=== PATIENT | male | born 1945 | race Caucasian/White ===

== ENCOUNTER → 2023-05-27 11:02 | Outpatient (BNVA) | payer OTHER, SELFPAY | PROVIDERS: Referring Provider Emergency Medicine Emergency Medical Services; Visit Provider Physician Assistant | DX: M17.0 Bilateral primary osteoarthritis of knee | CPT/HCPCS: 73560; 73565; 99203 ==

== ENCOUNTER 2023-05-27 14:37 | Outpatient (CLI) | payer OTHER, SELFPAY | END 2023-05-27 14:38 | disposition home or self-care (01) | LOC: SPT 14:38 | PROVIDERS: Visit Provider Physician Assistant | DX: Z46.89 Encounter for fitting and adjustment of other specified devices (principal); M17.11 Unilateral primary osteoarthritis, right knee; M17.12 Unilateral primary osteoarthritis, left knee | CPT/HCPCS: 97760; L1851 ==

== ENCOUNTER → 2023-08-31 10:43 | Outpatient (BNVA) | payer OTHER, SELFPAY | PROVIDERS: PCP Nurse Practitioner Family; Visit Provider Student in an Organized Health Care Education/Training Program | DX: M17.0 Bilateral primary osteoarthritis of knee | CPT/HCPCS: 99214 ==

== ENCOUNTER 2023-10-12 10:31 | Outpatient (CLI) | payer OTHER, SELFPAY ==
[2023-10-12 11:04] LABS: Charge for UA Resulting for Rev
[2023-10-12 11:09] LABS: Basophils # 0.1 10^3/uL (0.0-0.1); Basophils % 0.8 %; Eosinophils # 1.3 10^3/uL (0.0-0.8); Eosinophils % 16.1 %; Hematocrit 43.5 % (37-53); Lymphocytes # 2.7 10^3/uL (0.8-4.8); Lymphocytes % 32.5 %; Mean Corpuscular HGB Conc 32.2 g/dL (30-55); Mean Corpuscular Hemoglobin 31.5 pg (27-33); Mean Platelet Volume 9.3 fL (7.4-10.4); Monocytes # 1.1 10^3/uL (0.2-0.9); Monocytes % 12.7 %; Neutrophils # 3.14 10^3/uL (1.8-7.7); Neutrophils % 37.7 %; Nucleated Red Blood Cells % 0 %; Platelet Count 230 10^3/cmm (157-399); Red Blood Count 4.44 10^6/uL (3.85-5.65); Red Cell Distribution Width 12.5 % (12.1-15.1); White Blood Count 8.34 10^3/uL (3.29-11.43)
[2023-10-12 11:32] LABS: Alanine Aminotransferase 10 U/L (0-41); Albumin Level 4.1 g/dL (3.5-5.2); Alkaline Phosphatase 63 U/L (40-130); Anion Gap 16.3 (5-19); Aspartate Amino Transferase 16 U/L (0-40); Blood Urea Nitrogen 12 mg/dL (8-23); Carbon Dioxide 24 mmol/L (22-29); Chloride 101 mmol/L (98-107); Globulin 2.9 g/dL (1.3-4.6); Glucose 96 mg/dL (65-115); Osmolality Calculated 284 mOsm/kg (285-295); Potassium 4.3 mmol/L (3.5-5.1); Sodium 137 mmol/L (136-145); Total Bilirubin 0.5 mg/dL (0.15-1.2)
[2023-10-12 11:33] LABS: Bilirubin Urine Neg (Negative); Blood Urine Neg (Negative); Glucose Urine UA Norm (Normal); Ketones Urine Negative (Negative); Leukocyte Esterase Urine Negative (Negative); Nitrate Urine Negative (Negative); Protein Urine Neg (Negative); Specific Gravity, Urine 1.015 (1.005-1.030); Urine Appearance Clear (CLEAR); Urine Color Yellow (Yellow); Urobilinogen Urine Norm (Negative); pH Urine 8 (5-7)
== END 2023-10-12 10:32 | disposition home or self-care (01) ==
LOC: LAB 10:32
PROVIDERS: PCP Nurse Practitioner Family; Visit Provider Student in an Organized Health Care Education/Training Program
DX: Z01.818 Encounter for other preprocedural examination (principal)
CPT/HCPCS: 36415; 80053; 81003; 81015; 85025

== ENCOUNTER 2023-10-18 10:18 | Outpatient (CLI) | payer OTHER, SELFPAY ==
--- NOTE | 2023-10-18 10:30 | CT_ITS ---
WS: [id number] CT LEFT knee, noncontrast HISTORY: LEFT TOTAL KNEE ARTHROPLASTY WITH BERNIE TECHNIQUE: Protocol for BERNIE total knee replacement has been obtained. This includes axial imaging th rough the LEFT hip, LEFT knee and LEFT ankle. DLP: 865.60 mGy.cm COMPARISON: Radiograph 05/27/2023 Pelvis: Visualized pelvis demonstrates osteopenia. Partial fusion of the SI joints. SI joints are inc ompletely included. No destructive bone lesions. Patent bilateral inguinal canals containing fat. Mil d distal diverticular disease. LEFT knee: Advanced atherosclerosis. Osteophytic ridging with narrowing of the joint spaces. Partial lateral subluxation of the patella. There is a small suprapatellar joint effusion. Mild muscle atroph y. Large Paez's cyst. LEFT ankle: Negative. CT/CT knee [facility] [id number] IMPRESSION: CT imaging provided for BERNIE robotic total knee replacement.
== END 2023-10-18 10:19 | disposition home or self-care (01) ==
LOC: RAD 10:19
PROVIDERS: PCP Nurse Practitioner Family; Visit Provider Student in an Organized Health Care Education/Training Program
DX: Z01.818 Encounter for other preprocedural examination (principal); M17.12 Unilateral primary osteoarthritis, left knee; M85.80 Other specified disorders of bone density and structure, unspecified site; I70.90 Unspecified atherosclerosis; M25.762 Osteophyte, left knee; M71.22 Synovial cyst of popliteal space [Baker], left knee
CPT/HCPCS: 73700; 93005

== ENCOUNTER 2023-11-01 11:55 | Observation (INO) | payer OTHER, MEDICARE, SELFPAY ==
[2023-11-01] VITALS (15 sets, daily range): BP systolic 137–195; BP diastolic 67–89; PULSE 48–102; RESP 15–20; TEMP 36.1–36.8; O2SAT 91–100; BMI 29.6; BMI 29.7
--- NOTE | 2023-11-01 07:32 | W.PM.OPSFHP ---
Same Day Surgery H&P Indication for Procedure/HPI DATE OF PROCEDURE: November 01, 2023 CHIEF COMPLAINT/INDICATIONFOR SURGICAL PROCEDURE: Left knee degenerative joint disease PREOP DIAGNOSIS: Left knee degenerative joint disease PLANNED PROCEDURE: Operation Date: 11/01/23 09:35 Proposed Procedures p Adam Robot Total Knee Arthroplasty(Left) - Sonido Aiken DO Medications/Allergies* Home Medications Medication Instructions Recorded Confirmed Type aspirin 325 mg tablet 325 mg PO DAILY PRN Pain 05/27/23 10/29/23 History Allergies/Adverse Reactions Allergy/AdvReac Type Severity Reaction Status Date / Time No Known Allergies Allergy Verified 10/29/23 08:58 Pertinent History/Comorbid Conditions* Social History Smoking and tobacco/nicotine status: never used tobacco/nicotine Alcohol intake: current Alcohol intake frequency: few times a week Pertinent Exam Findings alert, oriented x 3, operative site marked and procedure specific exam findings Please refer to detailed orthopedic examination on 08/31/2023 listed below: left Knee Exam: ROM 5 to 110 degrees Patellar crepitus with ROM Medial joint line tenderness to palpation Lateral joint line tenderness to palpation Mild joint effusion Negative Grecia's, but pain noted Negative Deisy's 15 degrees of Varus deformity Stable Varus and Valgus stress Gross motor sensory intact Recommendations Surgery/Procedure today Other Plans: Patient is clear the preoperative clearance process is here today elects proceed with left total knee arthroplasty?Adam robotic assisted. He understands the ins and outs of procedure the risk benefits complication alternatives of surgery as well as the postoperative course. Understanding risk of surgery elects proceed with surgical intervention. All questions have been answered at this time. Elects proceed with surgery today. Coding Level of Care Code Acute Code for Jabari Mahan
[2023-11-01] MEDS: ketorolac 30 mg/mL INJ IVP (08:05)
[2023-11-01] MEDS: lactated ringers 500 ML IV (08:05)
[2023-11-01 08:17] LABS: Basophils % 0.6 %; Eosinophils # 0.9 10^3/uL (0.0-0.8); Eosinophils % 14.5 %; Hematocrit 43.3 % (37-53); Lymphocytes # 1.7 10^3/uL (0.8-4.8); Lymphocytes % 27.4 %; Mean Corpuscular HGB Conc 33.3 g/dL (30-55); Mean Corpuscular Hemoglobin 31.2 pg (27-33); Mean Corpuscular Volume 93.7 fl (82-101); Mean Platelet Volume 10.1 fL (7.4-10.4); Monocytes # 0.7 10^3/uL (0.2-0.9); Monocytes % 11.5 %; Neutrophils # 2.86 10^3/uL (1.8-7.7); Neutrophils % 45.7 %; Nucleated Red Blood Cells % 0 %; Platelet Count 192 10^3/cmm (157-399); Red Blood Count 4.62 10^6/uL (3.85-5.65); Red Cell Distribution Width 12.3 % (12.1-15.1); White Blood Count 6.27 10^3/uL (3.29-11.43)
--- NOTE | 2023-11-01 08:19 | P.ANESASSM_ITS ---
Pre-Anesthetic Assessment Height/Weight: Height 1.73 m Weight 88.451 kg Temp Pulse Resp BP Pulse Ox O2 Del Method 97.4 F L 56 L 16 195/86 98 Room Air 11/01/23 07:25 11/01/23 07:25 11/01/23 07:25 11/01/23 07:25 11/01/23 07:25 11/01/23 07:55 Preop Diagnosis: Left knee degenerative joint disease Operation Date: 11/01/23 09:35 Proposed Procedures p Adam Robot Total Knee Arthroplasty(Left) - Sonido Aiken DO Familial anesthetic complications: None Was Beta Amy taken within 24 hours: N/A Was Clonidine taken within 24 hours: N/A Last intake: Intake Last Liquid Date 10/31/23 Last Liquid Time 23:00 Last Solid Date 10/31/23 Last Solid Time 17:00 Social No alcohol and No tobacco Exam alert, oriented x 3, clear to auscultation bilaterally and regular rate & rhythm Airway Mallampati: Class II Dentition: full Musc/skel Osteoarthritis/DJD Anesthetic Plan ASA status: 1 Anesthesia: Regional (specify below) Risk of > 500 ml blood loss (7ml/kg in children): No Medications/Allergies Home Medications Medication Instructions Recorded Confirmed Last Taken Type aspirin 325 mg tablet 325 mg PO DAILY PRN Pain 05/27/23 10/29/23 10/19/23 History 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 #1 ea 05/27/23 08/31/23 Unknown Rx Allergies Allergy/AdvReac Type Severity Reaction Status Date / Time No Known Allergies Allergy Verified 10/29/23 08:58 [facility] Anesthesia Social History Smoking and tobacco/nicotine status: never used tobacco/nicotine Alcohol intake: current Alcohol intake frequency: few times a week Data Anesthesia 11/01/23 07:55 11/01/23 07:55 Short CBC 11/01/23 Range/Units 07:55 WBC 6.27 (3.29-11.43) 10^3/uL Hgb 14.40 (11.27-16.99) g/dL Hct 43.3 (37-53) % MCV 93.7 (82-101) fl Plt Count 192 (157-399) 10^3/cmm Neut % (Auto) 45.7 % Neut # (Auto) 2.86 (1.8-7.7) 10^3/uL Cardiac Studies: 2 No Data to Display
[2023-11-01 08:35] LABS: Blood Urea Nitrogen 10 mg/dL (8-23); Calcium 9.1 mg/dL (8.5-10.5); Carbon Dioxide 27 mmol/L (22-29); Chloride 102 mmol/L (98-107); Creatinine Clr Calc Pharmacy 82.2581; Glucose 106 mg/dL (65-115); Osmolality Calculated 287 mOsm/kg (285-295); Sodium 139 mmol/L (136-145)
[2023-11-01] MEDS: sodium chloride 0.9% 1,000 ML 30 ML IV (08:45)
--- NOTE | 2023-11-01 08:50 | ANES.PROC ---
Anesthesia Procedures Procedure/Date: 11/01/23 Adductor canal block Procedure Narrative: Ultrasound used to locate adductor canal. Nerve Block ^: Nerve Block 1: Main Anesthesia: spinal anesthesia block Time Out Performed: Yes Consent: requested by attending/covering physician, from patient, risks and benefits reviewed and patient agrees to proceed Nerve block location: adductor canal Anesthesia monitors applied: pulse oximetry, EKG, BP cuff and oxygen Nerve block position: semi sitting Anesthetic Used: ropivicaine 0.5% Amount of anesthesia used (mL): 30 Ultrasound used to: recognize landmarks Nerve Stimulator Used?: No Interscalene/Femoral BLK: 4 stimuplex 21 g needle used for position and inplane approach, visualize local anesthetic spread and no vascular puncture identified Injection: neg aspiration of heme Patient Tolerated Procedure: well and no complications Complications: none
[2023-11-01] MEDS: ceFAZolin 2,000 MG in sodium chloride 0.9% (plus) 50 ML 100 MG IV ×2 (09:41→16:21)
[2023-11-01] MEDS: tranexamic acid 1,000 mg/10mL SDV 1000 MG IV (10:15)
[2023-11-01] MEDS: ROPivacaine 0.2% Premix 100 mL 200 MG INTRA-ARTI (10:26)
[2023-11-01] MEDS: EPINEPHrine 1 mg/mL INJ XX (10:26)
[2023-11-01] MEDS: ketorolac 30 mg/mL INJ XX (10:26)
[2023-11-01] MEDS: tranexamic acid 1,000 mg/10mL SDV 1000 MG XX (10:26)
--- NOTE | 2023-11-01 11:34 | P.OP_ITS ---
Operative Report Date of procedure: November 01, 2023 Surgeon: Sonido Aiken DO Urgent Care Technician: Jacques Aiken PA-C: PA was necessary for assistance in this case with leg positioning retraction and protection of neurovascular structures as well as assistance in implantation wound closure and dressing application. Procedure: Preoperative diagnosis: Left knee degenerative joint disease Post-op diagnosis: Same Procedure done: Left total knee arthroplasty, cemented?robotic assisted Adam Implants: Alabaster triathlon size 6 femur CR cemented?left Alabaster triathlon size? 6 tibia universal baseplate cemented Alabaster triathlon symmetric patella size 33 mm George triathlon polyethylene 12mm Surgeon: Sonido Aiken DO Estimated blood?loss: 25 mL Tourniquet 59 minutes IV fluids: 1300 mL Urine output: 100 mL Complications: None Condition: stable Disposition: floor Brief History: Patient is a 77-year-old male with with chronic?left knee degenerative joint disease.? Patient has been worked up in the outpatient setting in the orthopedic office at this point time through shared decision making given? [id number] arthritis as well as failed conservative treatment, and pt would?like to proceed with a?left total knee arthroplasty.? Through shared decision making elected to proceed with surgical intervention for?left total knee arthroplasty.? We talked about continued conservative treatment and surgical intervention as far as the risk benefits complications alternatives surgical and nonsurgical treatment options.? At this point time understanding patient risks with surgery he agrees to proceed with surgical intervention.? Once again? risk with surgery include but are not?limited to make it better make it worse blood clot, heart attack, stroke, on the table, infection, injury to nerves or vessels, persistent pain, arthrofibrosis, implant failure.? Understanding these risks patient agrees to proceed with surgical intervention consent was obtained in the office.? All questions answered. Procedure: Patient was seen and evaluated in the preoperative holding area.? Consent was reviewed and signed with patient with plan for?left total knee arthroplasty.? All questions answered.? Correct extremity marked.? Patient seen and evaluated by the anesthesia department and once cleared for surgery was taken back to the operative suite.? Patient was placed into a supine position on the OR table.? All bony prominences were well-padded.? Patient was appropriately secured to the bed.? Patient underwent anesthesia per the anesthesia department.? Patient received spinal anesthesia and? Abreu catheter was placed.? A nonsterile tourniquet was applied to the?left thigh.? At this point in time a final timeout performed.? Patient received appropriate preoperative antibiotics and TXA. Next the?left?lower extremity was then prepped and draped in standard orthopedic fashion. Esmarch tourniquet was used exsanguinate the?left?lower extremity.? Tourniquet was insufflated to 250 mmHg. A standard anterior incision was made over midline of the knee.? Sharp scalpel excision through skin and subcutaneous tissue full-thickness skin flaps were made.? Fascia was elevated off of the extensor retinaculum was stable with medial parapatellar arthrotomy was then made.? The performed standard sequential releases..? Immediately on entry into the joint patient was found to have severe eburnated bone and tricompartmental arthritic changes noted.? With significant osteophyte formation.? Next the the patella was then stuffed and the knee was then flexed.?? Liyah was placed superiorly around the anterior aspect of the femur this was freed of synovium and I subsequently then placed by 2 femur pins to establish my femur arrays for the Adam robot.? These were then placed bicortically and? femur array was then appropriately secured with appropriate visualization.? Next attention was turned towards the tibial rays.? These were then drilled sequ entially bicortically in parallel fashion and intraincisional.? I then placed my guide as well as my tibial array on in place.? This was appropriately secured and had excellent visualization with the Adam robot.? Next the tibial checkpoint as well as femur checkpoint were then placed.? At this point time I then subsequently established my head center as well as my medial?lateral malleoli as well as my checkpoints.? Next utilizing standard Adam technology I then mapped out the appropriate points and confirmation points around the femur as well as the tibia in standard fashion.? Once this was then done I then removed all osteophytes in preparation for dynamic testing.? All osteophytes were removed as well as I removed the ACL and the PCL was excised due to its significant tearing and degeneration noted.? At this point time the knee was brought into full extension and we performed our standard evaluation of our gap balancing stressing his?ligaments and extension as well as flexion appro priate adjustments were made to have appropriate gap balancing in both flexion and extension.? This plan for final counts.? We get a preoperative plan evaluating our implants which was a size 6 femur and a size 6 tibia.? Next we brought in the Adam robot and sequentially made our femur cuts.? All excess bony cuts were then removed.? Finally we made our tibial cut.? Once this was done a standard PCL retractor was then placed into this position I excised the medial and?lateral meniscus.? The tibial cut was then subsequently removed all excess bony debris was removed.? I then utilized a?lamina newscast director and remove the posterior osteophytes.? At this point time sized the tibia and confirmed this was a size 6.? I utilized our blunt probe to establish rotation of tibial implant.? Once this was done I then placed my tibia size 6 trial in appropriate position and then subsequently placed tibial pins to hold this into place placed a size 12 mm poly as well as a size 6 femur which was appropriately impacted in place knee was then subsequently brought into extension. Trials were then assessed,? this was stable with varus valgus stress in extension as well as had symmetrical translation when brought into flexion demonstrating symmetrical gaps. I had excellent balance gaps in flexion and extension with varus and valgus stresses.? At this point I was satisfied with these implants these were then verified and opened on the back table size 6 tibia, size 6 femur,? size 12 mm polythickness.? We did confirm appropriate gap balancing and stresses as well as alignment utilizing? Adam and were satisfied with this plan.? ?At this point time with my trials in place I then towel clip the patella everted this made appropriate measurements subsequently utilizing freehand technique performed by patellar resurfacing this was confirmed to be appropriate resection and subsequently sized to be a 33 mm symmetric.? My drill peg guides were then clamped and appropriate position and appropriate position in the patella for appropriate tracking and parallel with the joint.? Pegs were drilled trial implant was placed and the knee was then subsequently ranged and found to have excellent patellar tracking.? Femur pegs were then drilled.? All checkpoints as well as guidepins and arrays were removed and appropriate counts. made. Satisfied with our tibial placement rotation I then utilized the keel punch and prepped the tibia.? At this point time all of our trial implants were removed.?The wound bed? was thoroughly irrigated and dried and prepped for cementation.? Cement was mixed on the back table.? Once cement was ready this was then covered onto the tibia and the tibial baseplate was then impacted and all excess cement was removed.? Next the polyethylene was then impacted into place on the tibial baseplate.? Next cement was placed onto the femur as well as under the femur implants and impacted in to place and all excess cement was extruded and removed.? Knee was taken into full extension? to clear all excess cement was removed.? Warm saline was placed over the joint.? I then towel clip patella and dried for cementation. cemented the patella into place.? This was all clamped and the cement was allowed to cure.? Thorough irrigation performed with pulse?lavage.? I then placed my periarticular injection while the cement was curing.? Once cured the knee was taken through range of motion and had excellent stability and gaps were balanced in flexion and extension.? Tourniquet was then deflated. hemostasis satisfactory with electrocautery.? Next I then subsequently closed the capsule with Ethibond suture as well as a running strata fix suture.? Knee was then taken through range of motion 20 times.? Next the skin was then closed in?layered fashion of running stratifix sutures of deep and subcutenous tissue and skin.? ?closed in flexion and ajay for patient scan due to his age skin frailty as well as he does have some psoriasis patches around where the adhesive dressing would be I feel this would irritates as a result we did ajay for the skin.? Incision was covered with puja incisional VAC dressing, with ABDs soft roll and Bay wrap.? Patient was then awakened from anesthesia and taken to PACU in stable condition. Disposition: Patient taken to PACU in stable condition will be admitted to the floor for pain control PT/OT weight-bear as tolerated?left?lower extremity dressing changes as needed, DVT prophylaxis. Pain control. Patient will receive appropriate postoperative antibiotics. patient will be seen today by the internal medicine team for medical management.? Patient will follow up with the office in 2 weeks.? Patient understands agrees with current plan.? All questions answered.
--- NOTE | 2023-11-01 11:51 | P.BOP_ITS ---
Date of Procedure: November 01, 2023] Surgeon: [Dr. Aiken DO] Porter Marina(s): [Jacques Aiken PA-C] Procedure(s) performed: [Left knee total arthroplasty with Adam robotic assist] Findings of the procedure(s): [Left knee degenerative joint disease] Estimated blood loss: [25 mL] Specimen(s) removed: [N/A] Post-operative diagnosis: [Left knee degenerative joint disease]
--- NOTE | 2023-11-01 11:54 | P.PCN_ITS ---
PACU note Narrative: Patient is a 77-year-old male that just underwent a left knee total arthroplasty. Pt transferred to PACU in stable condition. Dressing is dry. pt is awake and alert. Compartments are soft and compressible. Pt can wiggle toes. Unable to assess sensation to lower leg and any further motor function due to residual block. Distal pulses are palpable toes are warm and well- perfused. Cap refill is normal and under 2 seconds. Pain is controlled. Exam: awake Disposition: admitted
--- NOTE | 2023-11-01 11:55 | XR_ITS ---
WS: [id number] XR knee LT 1-2V [id number] REASON FOR EXAM: Left knee TKA post op FINDINGS: Total left knee arthroplasty. Components of the prosthesis are intact and in proper position and alignment. No focal bony abnormality. XR/XR knee LT -2V [id number] IMPRESSION: Total left knee arthroplasty without abnormality.
--- NOTE | 2023-11-01 12:10 | ANE.PACU2 ---
Inpatient post-anesthesia follow up: Airway intact: Yes Vital signs: Temperature 98.2 F Pulse Rate 58 Respiratory Rate 16 Blood Pressure 137/89 Pulse Oximetry 99 Oxygen Delivery Me thod Room Air Oxygen Flow Rate Fraction of Inspir ed Oxygen Hydration adequate: Yes Nausea and vomiting: No Pain level: 1 Mental status: Baseline
[2023-11-01] MEDS: cetylpyridinium Lozenge 1 EACH MUCOUS MEM (13:23)
[2023-11-01] MEDS: calcium carb-vit d 600mg/400unit 1 Tablet 1 EACH PO ×2 (13:23→17:40)
[2023-11-01] MEDS: iron polysaccharide complex 150 mg Capsule PO ×2 (13:23→17:40)
[2023-11-01] MEDS: multivitamin therapeutic Tablet 1 TAB PO (13:23)
[2023-11-01] MEDS: lactated ringers 1,000 ML 100 ML IV (13:24)
[2023-11-01] MEDS: chlorhexidine gluconate 0.12% Btl 473 mL 30 ML MUCOUS MEM ×3 (13:24→20:52)
[2023-11-01] MEDS: tranexamic acid 1,000 MG/100 ML PREMIX 600 MG IV (16:12)
[2023-11-02] VITALS: BP 151/73; PULSE 74; RESP 16; TEMP 36.7; O2SAT 95
[2023-11-02] MEDS: ceFAZolin 2,000 MG in sodium chloride 0.9% (plus) 50 ML 100 MG IV ×2 (00:47→09:30)
[2023-11-02 04:33] LABS: Basophils % 0.2 %; Eosinophils # 0.1 10^3/uL (0.0-0.8); Eosinophils % 0.6 %; Hematocrit 33.9 % (37-53); Lymphocytes # 1.5 10^3/uL (0.8-4.8); Mean Corpuscular HGB Conc 33.3 g/dL (30-55); Mean Corpuscular Hemoglobin 31.3 pg (27-33); Mean Corpuscular Volume 93.9 fl (82-101); Mean Platelet Volume 10.1 fL (7.4-10.4); Monocytes # 1.6 10^3/uL (0.2-0.9); Monocytes % 14.6 %; Neutrophils # 7.56 10^3/uL (1.8-7.7); Neutrophils % 70.1 %; Nucleated Red Blood Cells % 0 %; Platelet Count 180 10^3/cmm (157-399); Red Blood Count 3.61 10^6/uL (3.85-5.65); Red Cell Distribution Width 12.4 % (12.1-15.1); White Blood Count 10.77 10^3/uL (3.29-11.43)
[2023-11-02 04:51] LABS: Anion Gap 11.8 (5-19); Blood Urea Nitrogen 9 mg/dL (8-23); Carbon Dioxide 25 mmol/L (22-29); Chloride 104 mmol/L (98-107); Creatinine Clr Calc Pharmacy 82.3752; Glucose 100 mg/dL (65-115); Osmolality Calculated 283 mOsm/kg (285-295); Potassium 3.8 mmol/L (3.5-5.1); Sodium 137 mmol/L (136-145)
[2023-11-02] MEDS: ketorolac 30 mg/mL INJ 15 MG IVP (06:27)
[2023-11-02] MEDS: TRAMadol 50 mg Tablet PO (06:36)
[2023-11-02 07:44] VITALS: BP 175/75; PULSE 62; RESP 18; TEMP 36.6; O2SAT 95
--- NOTE | 2023-11-02 08:00 | P.DS_ITS ---
Discharge Providers Date of Admission: 11/01/23 11:55 Date of Discharge: November 02, 2023 Attending Provider at Admission: Sonido Aiken DO Attending Provider at Discharge: Sonido Aiken DO Consults: Dr. Webster?hospitalist Primary Care Provider: Chioma Machado APRN Diagnoses at Discharge Discharge Diagnosis (1) Left knee DJD: Status: Inactive (2) Osteoarthritis of right knee: Status: Inactive (3) Loose left total knee arthroplasty: Status: Inactive Reason for Visit Reason for Visit: Brief History: Status post left TKA Hospital Course Hospital Course Patient presented to the preoperative holding area with plan for left total knee arthroplasty after patient has been worked up in the outpatient setting for failed conservative treatment of left knee degenerative joint disease. Once cleared by anesthesia for surgery patient subsequently was taken back to the operative suite underwent anesthesia per anesthesia department and then subsequently underwent a left total knee arthroplasty. Procedure was performed without any complications patient was taken to PACU in stable condition patient recovered well in PACU and then was admitted to the floor postoperatively internal medicine was consulted and on board for medical management and assistance with care. Patient received appropriate PT/OT, postoperative antibiotics, postoperative TXA, pain control, postoperative DVT prophylaxis. Elevation and ice. Patient encouraged for knee range of motion allowed weightbearing as tolerated to the operative lower extremity. Dressing was changed as needed, labs were monitored daily. Patient recovered well postoperatively and worked well and progressed well with therapy. It was determined on postoperative day 1 the patient was stable for discharge from an orthopedic standpoint and medicine. Patient was comfortable with discharge and plan was discharged home. Patient received appropriate discharge instructions as well as pain medication and DVT prophylaxis postoperatively. Given appropriate instructions for dressing management. Patient will follow-up with Dr. Aiken/orthopedics in the office in 2 weeks. All questions answered. Understand if there is any issues questions or concerns and contact the office. Physical Exam Narrative: Examination left lower extremity: Examination left lower extremity demonstrates patient's dressings on in place good seal normal postoperative swelling about the knee as well as diffuse tenderness palpation. Calf soft nontender compartment soft compressible. Distal pulses are palpable toes warm well-perfused with cap refill less than 2 seconds and a plantarflex and dorsiflex ankle as well as wiggle toes. Urinary Catheter Management: Abreu: Cath Placed During This Visit: yes, but has since been removed by the nurse Reason for Continuing Indwelling Catheter: Decision to DC Catheter Date Urinary Catheter Removed: 11/02/23 Time Urinary Catheter Discontinued: 06:18 Discharge Data Studies Completed and Pending Completed Studies During Hospitalization Category Date Time Status XR knee LT 1-2V 33441 Routine Exams 11/01/23 11:55 Completed Radiology Impressions Knee X-Ray 11/01/23 11:55 IMPRESSION: Total left knee arthroplasty without abnormality. Laboratory Results WBC 10.77 10^3/uL (3.29-11.43) 11/02/23 04:20 RBC 3.61 10^6/uL (3.85-5.65) L 11/02/23 04:20 Hgb 11.30 g/dL (11.27-16.99) 11/02/23 04:20 Hct 33.9 % (37-53) L 11/02/23 04:20 MCV 93.9 fl (82-101) 11/02/23 04:20 MCH 31.3 pg (27-33) 11/02/23 04:20 MCHC 33.3 g/dL (30-55) 11/02/23 04:20 RDW 12.4 % (12.1-15.1) 11/02/23 04:20 Plt Count 180 10^3/cmm (157-399) 11/02/23 04:20 MPV 10.1 fL (7.4-10.4) 11/02/23 04:20 Neut % (Auto) 70.1 % 11/02/23 04:20 Lymph % (Auto) 14.0 % 11/02/23 04:20 [place] % (Auto) 14.6 % 11/02/23 04:20 Eos % (Auto) 0.6 % 11/02/23 04:20 Baso % (Auto) 0.2 % 11/02/23 04:20 Neut # (Auto) 7.56 10^3/uL (1.8-7.7) 11/02/23 04:20 Lymph # (Auto) 1.5 10^3/uL (0.8-4.8) 11/02/23 04:20 [place] # (Auto) 1.6 10^3/uL (0.2-0.9) H 11/02/23 04:20 Eos # (Auto) 0.1 10^3/uL (0.0-0.8) 11/02/23 04:20 Baso # (Auto) 0.0 10^3/uL (0.0-0.1) 11/02/23 04:20 Nucleated RBC % (auto) 0 % 11/02/23 04:20 Nucleated RBCs # 0.0 /100WBC 11/02/23 04:20 Sodium 137 mmol/L (136-145) 11/02/23 04:20 Potassium 3.8 mmol/L (3.5-5.1) 11/02/23 04:20 Chloride 104 mmol/L (98-107) 11/02/23 04:20 Carbon Dioxide 25 mmol/L (22-29) 11/02/23 04:20 Anion Gap 11.8 (5-19) 11/02/23 04:20 BUN 9 mg/dL (8-23) 11/02/23 04:20 Creatinine 0.7 mg/dL (0.7-1.2) 11/02/23 04:20 GFR Calculation Not Reportable 11/02/23 04:20 Glucose 100 mg/dL (65-115) 11/02/23 04:20 Calculated Osmolality 283 mOsm/kg (285-295) L 11/02/23 04:20 Calcium 9.0 mg/dL (8.5-10.5) 11/02/23 04:20 Blood Type A Negative 11/01/23 07:55 Rho(D) Type Rh negative 11/01/23 07:55 Antibody Screen Negative 11/01/23 07:55 Vitals Last Vital Signs Temp 97.9 F 11/02/23 07:44 Pulse 63 11/02/23 10:04 Resp 18 11/02/23 10:04 BP 175/75 11/02/23 07:44 Pulse Ox 96 11/02/23 10:04 O2 Del Method Room Air 11/02/23 09:24 Discharge Plan Discharge Patient Disposition: Home Health Service Condition: Stable Prescriptions: New ondansetron 4 mg tablet,disintegrating 4 mg PO Q8H PRN (Reason: nausea and vomiting) 3 Days Qty: 9 0RF Eliquis 2.5 mg tablet 2.5 mg PO BID 14 Days Qty: 28 0RF oxycodone 5 mg tablet 5 mg PO Q6H PRN (Reason: pain postop) 7 Days Qty: 28 0RF Calcium 600 + D(3) 600 mg-10 mcg (400 unit) tablet 1 tab PO DAILY 30 Days Qty: 30 0RF lisinopril 10 mg tablet 10 mg PO DAILY Qty: 30 3RF Held aspirin 325 mg tablet 325 mg PO DAILY PRN (Reason: Pain) Hold Instructions: Resume on 11/16/23. No Action (DME) bilateral knee drum loader and unloader brace See Rx Instructions .Route .MEDSUPPLY Qty: 1 0RF Rx Instructions: As directed Discharge Orders: Discharge Order (Routine); Ordered 11/02/23 Ordered By: Sonido Aiken Other Ambulatory Orders: DME: Walker (Order) Location: None Selected Ordered By: Sonido Aiken Referrals: [facility] [Other] - 11/09/23 11:30 am (Chioma Machado APN) [facility] [Outside] Sonido Aiken DO [Physician] - 11/16/23 8:45 am Discharge Diet: Regular Discharge Activity: Limit activity as instructed and Use walker/crutches as instructed Patient Instructions: Oxycodone, Rapid Release (By mouth), Ondansetron (By mouth), Apixaban (By mouth), Acute Wound Care (DC), Opioid Safety, Post Anesthesia Care Activity Restrictions/Additional Instructions: Orthopedic discharge instructions Brian Dressing--Keep dressing on and dry. After 3 days you can remove some of the dressing and shower. disconnect battery pack when showering. Brian dressing will stay on until follow up appt in 2 weeks. The battery pack for the dressing will at 5-7 days. Battery pack can be removed and discarded once batteries . May leave the dressing on for 2 weeks Patient may weight-bear as tolerate to the operative extremity Utilize crutches as needed Encourage knee range of motion Ice and elevate as needed for pain and swelling Take pain medication as prescribed Take antinausea medication as needed Pain medication can cause constipation. take swse-rqq-xgjfldz stool softeners and or MiraLAX. Take prescribed Eliquis twice daily for the next 14 days for blood clot prevention May supplement for pain with ibuprofen [id number]-[id number]-[id number] as needed No baths or soaks Follow-up in the orthopedic office in 2 weeks Contact the office for any questions or concerns Discharge Attestations Time Spent in Discharge Care*: less than 30 min Quality Metrics Clinical Quality Measures [ No reported AMI, CVA or VTE this stay] Coding Level of Care Code Acute Code for Chg Fwd Diagnoses Left knee DJD M17.12 Osteoarthritis of right knee M17.11 Loose left total knee arthroplasty T84.033A
--- NOTE | 2023-11-02 08:03 | P.DS_ITS ---
Discharge Providers Date of Admission: 11/01/23 11:55 Date of Discharge: November 02, 2023 Attending Provider at Admission: Sonido Aiken DO Attending Provider at Discharge: Sonido Aiken DO Primary Care Provider: Chioma Machado APRN Physical Exam Urinary Catheter Management: Abreu: Cath Placed During This Visit: yes, but has since been removed by the nurse Reason for Continuing Indwelling Catheter: Decision to DC Catheter Date Urinary Catheter Removed: 11/02/23 Time Urinary Catheter Discontinued: 06:18 Discharge Data Studies Completed and Pending Completed Studies During Hospitalization Category Date Time Status XR knee LT 1-2V 02675 Routine Exams 11/01/23 11:55 Completed Pending at discharge Category Date Time Status Basic Metabolic Panel AM LABS Lab 11/03/23 04:00 Ordered Basic Metabolic Panel AM LABS Lab 11/04/23 04:00 Ordered Complete Blood Count w/Auto AM LABS Lab 11/03/23 04:00 Ordered Complete Blood Count w/Auto AM LABS Lab 11/04/23 04:00 Ordered Radiology Impressions Knee X-Ray 11/01/23 11:55 IMPRESSION: Total left knee arthroplasty without abnormality. Laboratory Results WBC 10.77 10^3/uL (3.29-11.43) 11/02/23 04:20 RBC 3.61 10^6/uL (3.85-5.65) L 11/02/23 04:20 Hgb 11.30 g/dL (11.27-16.99) 11/02/23 04:20 Hct 33.9 % (37-53) L 11/02/23 04:20 MCV 93.9 fl (82-101) 11/02/23 04:20 MCH 31.3 pg (27-33) 11/02/23 04:20 MCHC 33.3 g/dL (30-55) 11/02/23 04:20 RDW 12.4 % (12.1-15.1) 11/02/23 04:20 Plt Count 180 10^3/cmm (157-399) 11/02/23 04:20 MPV 10.1 fL (7.4-10.4) 11/02/23 04:20 Neut % (Auto) 70.1 % 11/02/23 04:20 Lymph % (Auto) 14.0 % 11/02/23 04:20 [place] % (Auto) 14.6 % 11/02/23 04:20 Eos % (Auto) 0.6 % 11/02/23 04:20 Baso % (Auto) 0.2 % 11/02/23 04:20 Neut # (Auto) 7.56 10^3/uL (1.8-7.7) 11/02/23 04:20 Lymph # (Auto) 1.5 10^3/uL (0.8-4.8) 11/02/23 04:20 [place] # (Auto) 1.6 10^3/uL (0.2-0.9) H 11/02/23 04:20 Eos # (Auto) 0.1 10^3/uL (0.0-0.8) 11/02/23 04:20 Baso # (Auto) 0.0 10^3/uL (0.0-0.1) 11/02/23 04:20 Nucleated RBC % (auto) 0 % 11/02/23 04:20 Nucleated RBCs # 0.0 /100WBC 11/02/23 04:20 Sodium 137 mmol/L (136-145) 11/02/23 04:20 Potassium 3.8 mmol/L (3.5-5.1) 11/02/23 04:20 Chloride 104 mmol/L (98-107) 11/02/23 04:20 Carbon Dioxide 25 mmol/L (22-29) 11/02/23 04:20 Anion Gap 11.8 (5-19) 11/02/23 04:20 BUN 9 mg/dL (8-23) 11/02/23 04:20 Creatinine 0.7 mg/dL (0.7-1.2) 11/02/23 04:20 GFR Calculation Not Reportable 11/02/23 04:20 Glucose 100 mg/dL (65-115) 11/02/23 04:20 Calculated Osmolality 283 mOsm/kg (285-295) L 11/02/23 04:20 Calcium 9.0 mg/dL (8.5-10.5) 11/02/23 04:20 Blood Type A Negative 11/01/23 07:55 Rho(D) Type Rh negative 11/01/23 07:55 Antibody Screen Negative 11/01/23 07:55 Vitals Last Vital Signs Temp 97.9 F 11/02/23 07:44 Pulse 62 11/02/23 07:44 Resp 18 11/02/23 07:44 BP 175/75 11/02/23 07:44 Pulse Ox 95 11/02/23 07:44 O2 Del Method Room Air 11/02/23 07:44 Discharge Plan Discharge Patient Disposition: Home Health Service Condition: Stable Prescriptions: New ondansetron 4 mg tablet,disintegrating 4 mg PO Q8H PRN (Reason: nausea and vomiting) 3 Days Qty: 9 0RF Eliquis 2.5 mg tablet 2.5 mg PO BID 14 Days Qty: 28 0RF oxycodone 5 mg tablet 5 mg PO Q6H PRN (Reason: pain postop) 7 Days Qty: 28 0RF Calcium 600 + D(3) 600 mg-10 mcg (400 unit) tablet 1 tab PO DAILY 30 Days Qty: 30 0RF lisinopril 10 mg tablet 10 mg PO DAILY Qty: 30 3RF Held aspirin 325 mg tablet 325 mg PO DAILY PRN (Reason: Pain) Hold Instructions: Resume on 11/16/23. No Action (DME) bilateral knee sql tech brace See Rx Instructions .Route .MEDSUPPLY Qty: 1 0RF Rx Instructions: As directed Discharge Orders: Discharge Order (Routine); Ordered 11/02/23 Ordered By: Sonido Aiken Other Ambulatory Orders: DME: Walker (Order) Location: None Selected Ordered By: Sonido Aiken Referrals: [facility] [Other] - 11/09/23 11:30 am (Chioma Machado APN) [facility] [Outside] Sonido Aiken DO [Physician] - 11/16/23 8:45 am Discharge Diet: Regular Discharge Activity: Limit activity as instructed and Use walker/crutches as instructed Patient Instructions: Oxycodone, Rapid Release (By mouth), Ondansetron (By mouth), Apixaban (By mouth), Acute Wound Care (DC), Opioid Safety, Post Anesthesia Care Activity Restrictions/Additional Instructions: Orthopedic discharge instructions Brian Dressing--Keep dressing on and dry. After 3 days you can remove some of the dressing and shower. disconnect battery pack when showering. Brian dressing will stay on until follow up appt in 2 weeks. The battery pack for the dressing will at 5-7 days. Battery pack can be removed and discarded once batteries . May leave the dressing on for 2 weeks Patient may weight-bear as tolerate to the operative extremity Utilize crutches as needed Encourage knee range of motion Ice and elevate as needed for pain and swelling Take pain medication as prescribed Take antinausea medication as needed Pain medication can cause constipation. take dpzb-pce-phmhmgn stool softeners and or MiraLAX. Take prescribed Eliquis twice daily for the next 14 days for blood clot prevention May supplement for pain with ibuprofen zncy-txx-hcldbjt as needed No baths or soaks Follow-up in the orthopedic office in 2 weeks Contact the office for any questions or concerns Discharge Attestations Time Spent in Discharge Care*: less than 30 min Quality Metrics Clinical Quality Measures [ No reported AMI, CVA or VTE this stay] Coding Level of Care Code Acute Code for Jabari Fwgraham
[2023-11-02] MEDS: calcium carb-vit d 600mg/400unit 1 Tablet 1 EACH PO (09:07)
[2023-11-02] MEDS: apixaban 5 mg Tablet 2.5 MG PO (09:08)
[2023-11-02] MEDS: iron polysaccharide complex 150 mg Capsule PO (09:08)
[2023-11-02] MEDS: multivitamin therapeutic Tablet 1 TAB PO (09:08)
--- NOTE | 2023-11-02 09:19 | PC.CHAP ---
Pastoral Care Encounter/Spiritual Assessment Type of Contact [] Declined server systems administrator visit [] Patient/Family/Request visit [] Outpatient visit [] Follow-up visit [] Physician referral [] Code/Alert [x] Routine visit [] Staff referral [] Actively dying [] Patient sleeping [x] Family support [] [] Out of room [] Palliative care [] [] Receiving care in room [] Pre-surgical visit [] Trauma [] Long length of stay [] ICU visit [] Other: Relational/Emotional Strength [x] Patient feels connected with others/family/visitors/staff [] Distress [] Loneliness/isolation [] Abandonment Spirituality of Patient [x] Person of Marleen [] Attends L[employer] of their Marleen [x] Believes in Prayer [] Reads Bible or Congregation materials [] There are Spiritual issues to be addressed Proctologist Interventions [x] Prayer [x] Active listening [] Non-anxious presence [x] Spiritual/emotional support [] Crisis/trauma care [] Spiritual counseling [] Bereavement support [] Provided bereavement packet [] Provided Bible/devotional materials [] Provided toy/stuffed animal, coloring book to patient or family member [] Provided Communion [] Anointing/[place] [] Salvation [x] Completed spiritual assessment [] Other: Impact on Illness or Injury [] Angry [] Fearful [] Anxious [] Often cries [] Exhaustion [] Unable to work [] Unable to attend anabaptist [] Unable to walk/stand [] Unable to read [] Unable to drive [] Unable to eat/drink [] Unable to sleep [] Unable to be with family [] Patient intubated [] Other: Summary Time spent with patient 5 min
[2023-11-02 09:24] VITALS: PULSE 63; RESP 18; O2SAT 96
--- NOTE | 2023-11-02 09:39 | P.CONIM_ITS ---
Providers/Reason For Consult 2 Consulting Physician/Specialty*: Hospitalist Reason for Consult*: Postoperative management Attending Physician: Sonido Aiken DO Primary Care Provider: Chioma Machado APRN History of Present Illness History of Present Illness Jesus Zaman is a 77 year old male status post left total knee arthroplasty, hospital service was consulted for postoperative management. Patient remained stable postoperatively, he did well with PT, pain was under control he was put on opioids along bowel regimen,No postoperative complications. Patient is going home with stable hemodynamics with DVT prophylaxis. He will see Dr. Aiken in the clinic Review of Systems 2 Const: Denies: fever(s) Eyes: Denies: change in vision ENMT: Denies: throat pain Card: Denies: chest pain Medications/Allergies Home Medications Medication Instructions Recorded Confirmed Last Taken Type aspirin 325 mg tablet 325 mg PO DAILY PRN Pain 05/27/23 10/29/23 10/19/23 History bilateral knee grain unloader machine brace #1 ea 05/27/23 11/02/23 Unknown Rx apixaban 2.5 mg tablet (Eliquis) 2.5 mg PO BID 2 weeks #28 tabs 11/01/23 Unknown Rx ondansetron 4 mg disintegrating 4 mg PO Q8H PRN nausea and 11/01/23 Unknown Rx tablet vomiting 3 days #9 tabs calcium carbonate 600 mg-vitamin 1 tab PO DAILY Bone health and 11/02/23 Unknown Rx D3 10 mcg (400 unit) tablet healing 30 days #30 tabs (Calcium 600 + D(3)) oxycodone 5 mg tablet 5 mg PO Q6H PRN pain postop 7 days 11/02/23 Unknown Rx #28 tabs Allergies Allergy/AdvReac Type Severity Reaction Status Date / Time No Known Allergies Allergy Verified 10/29/23 08:58 Current Medications Generic Name Dose Route Start Last Admin Trade Name Freq PRN Reason Stop Dose Admin Calcium Carbonate 1 each 11/01/23 12:25 11/01/23 13:23 Calcium Carb-Vit D 600mg/400unit 1 Tablet PO 1 each BID GUANACO Administration Chlorhexidine Gluconate 30 ml 11/01/23 12:25 11/01/23 16:16 Chlorhexidine Gluconate 0.12% Btl 473 Ml MUCOUS MEM 30 ml QID GUANACO Administration Docusate Sodium 100 mg 11/01/23 12:25 11/01/23 13:22 Docusate Sodium 100 Mg Capsule PO Not Given BID GUANACO Acetaminophen 1,000 mg in 100 mls @ 400 mls/hr 11/01/23 13:30 11/01/23 13:22 Acetaminophen IV 11/02/23 05:44 Not Given Q8H GUANACO Lactated Ringer's 1,000 mls @ 100 mls/hr 11/01/23 12:25 11/01/23 13:24 Lactated Ringers IV 100 mls/hr .Q10H GUANACO Administration Cefazolin Sodium 2,000 mg/ 50 mls @ 100 mls/hr 11/01/23 17:00 11/01/23 16:21 Sodium Chloride IV 11/02/23 09:29 100 mls/hr Q8H GUANACO Administration Protocol Multivitamins Therapeutic 1 tab 11/01/23 12:25 11/01/23 13:23 Multivitamin Therapeutic Tablet PO 1 tab DAILY GUANACO Administration Mupirocin 1 applic 11/01/23 12:25 11/01/23 14:20 Mupirocin Oint 22 Gm NASAL 11/06/23 12:24 Not Given BID GUANACO Protocol Polysaccharide Iron Complex 150 mg 11/01/23 12:25 11/01/23 13:23 Iron Polysaccharide Complex 150 Mg Capsule PO 150 mg BIDWM GUANACO Administration Senna/Docusate Sodium 2 tab 11/01/23 12:25 11/01/23 13:22 Sennosides-Docusate Tablet PO Not Given BID GUANACO PFSH Acute 2 PFSH: Social History Smoking and tobacco/nicotine status: never used tobacco/nicotine Alcohol intake: current Alcohol intake frequency: few times a week Vitals/I&O/Wt Last Vital Signs Temp 97.7 F 11/01/23 15:20 Pulse 48 L 11/01/23 15:20 Resp 16 11/01/23 15:20 BP 188/67 11/01/23 15:20 Pulse Ox 97 11/01/23 15:20 O2 Del Method Room Air 11/01/23 15:20 11/01/23 11/01/23 11/01/23 06:59 14:59 22:59 Intake Total 2100 / 2100 Output Total 125 / 125 Balance 1974 / 1974 Weight last 48 hrs Weight 88.451 kg Physical Exam 2 Narrative: Awake and alert GCS 15 Nonfocal neuroexam Working with PT S1, S2 Currently on room air Data 11/02/23 04:20 11/02/23 04:20 A&P Assessment and plan (1) Left knee DJD: (2) Osteoarthritis of right knee: (3) Loose left total knee arthroplasty: Plan Postop day 1 No postoperative complications Hemodynamically stable Being discharged with DVT prophylaxis opioids and bowel regimen Will follow-up with Dr. Aiken outpatient Hypertension could be related to recent postoperative pain, will add low-dose lisinopril Consult Attestations 2 Medical Necessity Statement: Getting discharged today Diagnoses Left knee DJD M17.12 Osteoarthritis of right knee M17.11 Loose left total knee arthroplasty T84.033A
[2023-11-02 10:04] VITALS: PULSE 63; RESP 18; O2SAT 96
== END 2023-11-02 10:55 | disposition home health service (06) ==
LOC: MEDSURG 11:55
PROVIDERS: Physician Assistant; Admitting Provider Student in an Organized Health Care Education/Training Program; PCP Nurse Practitioner Family; Visit Provider Student in an Organized Health Care Education/Training Program
PROC: 8E0Y0CZ Robotic Assisted Procedure of Lower Extremity, Open Approach (ICD-10-PCS; CPT 27447; principal; 2023-11-01 09:35)
DX: M17.12 Unilateral primary osteoarthritis, left knee (principal); Z79.82 Long term (current) use of aspirin; T84.033A Mechanical loosening of internal left knee prosthetic joint, initial encounter
CPT/HCPCS: 20985; 27447; 36415; 73560; 80048; 85025; 86850; 86900; 94664; 97110; 97116; 97161; 97165; C1776; G0378; J0171; J0690; J1100; J1885; J2250; J2704; J2795; J3010; J3490; J7030; J7120

== ENCOUNTER → 2023-11-16 08:39 | Outpatient (BNVA) | payer OTHER, MEDICARE, SELFPAY | PROVIDERS: PCP Nurse Practitioner Family; Visit Provider Physician Assistant | DX: Z96.652 Presence of left artificial knee joint (principal) | CPT/HCPCS: 73560; 73565 ==

== ENCOUNTER 2023-11-16 10:03 | Emergency (ER) | payer OTHER, MEDICARE, SELFPAY ==
--- NOTE | 2023-11-16 10:09 | USCV_ITS ---
Jesus Zaman Age: 78 Gender: M : 1945 Exam Date: 11/16/2023 10:52 Ordering Phys: Adriana Marks Technologist: [place] [facility] [place] Indication: post lt knee surg swelling and pain PROCEDURES: Venous duplex imaging was performed in only the left lower extremity. The following venous structures were evaluated: common femoral vein, profunda vein, proximal portion of the greater saphenous vein, superficial femoral vein, and the popliteal vein. In addition, the posterior tibial and peroneal trunk were evaluated. FINDINGS: Normal 2-D Doppler and augmentation and compressibility throughout the lower extremity venous structures. Additional imaging through the proximal calf veins also reveals no thrombus. Limited evaluation of the greater saphenous vein is patent with no thrombus. There is a large bakers cyst or hematoma in the lt popleteal fossa CONCLUSIONS No evidence of left lower extremity DVT. Popliteal cyst or hematoma measuring 6.5 x 2.6 x2.9cm with internal debris Amandeep Lezama MD (Electronically Signed) Final Date: 16 November 2023 11:30 S
[2023-11-16 10:23] VITALS: BP 174/78; PULSE 64; RESP 16; TEMP 36.8; O2SAT 97; BMI 29.3
--- NOTE | 2023-11-16 12:47 | ED_ITS ---
HPI - Extremity Problem General: Chief complaint: Extremity Problem,Nontraumatic Stated complaint: Left knee/leg pain and swelling Time Seen by Provider: 11/16/23 10:09 Source: patient and family Mode of arrival: ambulatory Limitations: no limitations History of Present Illness: Patient is a nice 78-year-old male who presents to the ED today at the request of the orthopedic clinic for DVT rule out. Patient underwent left knee arthroplasty by Dr. Aiken on 10/31. He states he followed up with orthopedic clinic today and was seen by Jacques Aiken PA-C. He states his sutures/ajay were removed on today's visit. There are some notable swelling to his popliteal space and calf thus prompting the recommendation to come to the emergency department for DVT rule out. Patient feels like his postop pain is doing well. He is ambulating well here. MD Complaint: extremity pain, extremity swelling, joint swelling and joint pain Onset (ago): day(s) Pain Consistency: constant Location: left and knee Radiation: none Relieving factors: nothing Exacerbating factors: nothing Associated symptoms: Reports no associated symptoms; Deny chest pain Context: recent surgery/procedure Related Data Home Medications Medication Instructions Recorded Confirmed aspirin 325 mg tablet 325 mg PO DAILY PRN Pain 05/27/23 11/16/23 ibuprofen 200 mg capsule 200 mg PO Q6H PRN 11/16/23 11/16/23 Previous Rx's Medication Instructions Recorded calcium carbonate 600 mg-vitamin 1 tab PO DAILY Bone health and 11/02/23 D3 10 mcg (400 unit) tablet healing 30 days #30 tabs (Calcium 600 + D(3)) lisinopril 10 mg tablet 10 mg PO DAILY #30 tabs 11/02/23 Allergies Allergy/AdvReac Type Severity Reaction Status Date / Time No Known Allergies Allergy Verified 11/16/23 08:47 Review of Systems Card: Denies: chest pain, palpitations, lightheadedness, syncope or pre- syncope Resp: Denies: dyspnea Musc: Reports: extremity pain, extremity swelling, joint pain and joint swelling; Denies: neck pain or back pain Neuro: Denies: numbness in extremities, weakness in extremities, sensory changes or difficulty walking PFS ED PFSH: Medical History Loose left total knee arthroplasty Osteoarthritis of right knee Left knee DJD Social History Smoking and tobacco/nicotine status: never used tobacco/nicotine Alcohol intake: current Alcohol intake frequency: few times a week Physical Exam Const: COMMON NORMALS: no acute distress, average body habitus, patient oriented x3, no limitations, healthy appearing, alert and well nourished Resp: COMMON NORMALS: normal respiratory effort and clear to auscultation bilaterally AUSCULTATION: clear to auscultation bilaterally Cardio: COMMON NORMALS: regular rate and regular rhythm RATE: regular rate RHYTHM: regular rhythm Extremity: COMMON NORMALS: full ROM and capillary refill normal GENERAL: Yes normal exam except as noted LEFT LOWER EXTREMITY: Yes knee joint OTHER: surgical knee incision is clean and well healing; normal post-op swelling/ecchymosis noted; TTP/swelling L popliteal space and into calf Neuro: COMMON NORMALS: patient oriented x3, moves all extremities, no focal motor deficits, no sensory deficits noted and gait normal SENSORIUM/ORIENTATION: Yes alert Course Vital Signs: Vital signs: Vital Signs Temperature 98.3 F 11/16/23 10:23 Pulse Rate 64 11/16/23 10:23 Respiratory Rate 16 11/16/23 10:23 Blood Pressure 174/78 11/16/23 10:23 Pulse Oximetry 97 11/16/23 10:23 Oxygen Delivery Me thod Room Air 11/16/23 10:23 MDM - Extremity (Nontraumatic) Medical Decision Making US negative for DVT. Space of concern was noted to be either a hematoma or a Paez's cyst. He states he will contact the orthopedic clinic to let them know results. They can follow-up with him as needed. Medical Records I reviewed the patient's medical records. All radiology interpretation(s) finalized by discharge Discharge Plan Discharge Patient Disposition: Home Clinical Impression: Hematoma of left knee region Condition: Stable Prescriptions: No Action aspirin 325 mg tablet 325 mg PO DAILY PRN (Reason: Pain) Hold Instructions: Resume on 11/16/23. ibuprofen 200 mg capsule 200 mg PO Q6H PRN Calcium 600 + D(3) 600 mg-10 mcg (400 unit) tablet 1 tab PO DAILY 30 Days Qty: 30 0RF lisinopril 10 mg tablet 10 mg PO DAILY Qty: 30 3RF Discharge Orders: Discharge ED (Routine); Ordered 11/16/23 Ordered By: Adriana Marks Referrals: Chioma Machado APRN [Primary Care Provider] - Activity Restrictions/Additional Instructions: As we discussed, your ultrasound today does not show any evidence of a blood clot. Ultrasound showed the area behind your knee is either secondary to a hematoma or Paez's cyst. As we discussed I like you to contact the orthopedic clinic to schedule further follow-up in regards to this. Coding Level of Care Code ED Neurology Professor for Jabari Mahan
[2023-11-16 13:11] VITALS: BP 182/78; PULSE 54; O2SAT 99
== END 2023-11-16 13:00 | disposition home or self-care (01) ==
PROVIDERS: Absent Provider Student in an Organized Health Care Education/Training Program; Emergency Provider Physician Assistant; PCP Nurse Practitioner Family
DX: S80.02XA Contusion of left knee, initial encounter (principal); Z79.82 Long term (current) use of aspirin; Z96.652 Presence of left artificial knee joint; X58.XXXA Exposure to other specified factors, initial encounter
CPT/HCPCS: 93971; 99024; 99284

== ENCOUNTER → 2023-12-14 10:39 | Outpatient (BNVA) | payer OTHER, SELFPAY | PROVIDERS: PCP Nurse Practitioner Family; Visit Provider Physician Assistant | DX: Z96.652 Presence of left artificial knee joint (principal); R03.0 Elevated blood-pressure reading, without diagnosis of hypertension | CPT/HCPCS: 73560; 73565; 99024 ==

== ENCOUNTER → 2024-04-11 09:45 | Outpatient (BNVA) | payer OTHER, SELFPAY | PROVIDERS: PCP Nurse Practitioner Family; Visit Provider Student in an Organized Health Care Education/Training Program | DX: M17.11 Unilateral primary osteoarthritis, right knee (principal); Z96.652 Presence of left artificial knee joint; M25.561 Pain in right knee | CPT/HCPCS: 73560; 73565; 99214 ==

== ENCOUNTER 2024-04-20 09:37 | Outpatient (CLI) | payer OTHER, SELFPAY ==
[2024-04-20 10:06] LABS: Add Urine Microscopic? NO
[2024-04-20 10:10] LABS: Basophils % 0.5 %; Eosinophils % 11.5 %; Hematocrit 40.7 % (37-53); Lymphocytes # 2.8 10^3/uL (0.8-4.8); Lymphocytes % 31.6 %; Mean Corpuscular HGB Conc 33.2 g/dL (30-55); Mean Corpuscular Hemoglobin 30.4 pg (27-33); Mean Corpuscular Volume 91.7 fl (82-101); Mean Platelet Volume 9.8 fL (7.4-10.4); Monocytes % 11.3 %; Neutrophils # 3.98 10^3/uL (1.8-7.7); Nucleated Red Blood Cells % 0 %; Platelet Count 212 10^3/cmm (157-399); Red Blood Count 4.44 10^6/uL (3.85-5.65); Red Cell Distribution Width 13.8 % (12.1-15.1); White Blood Count 8.84 10^3/uL (3.29-11.43)
[2024-04-20 10:10] LABS: Bilirubin Urine Negative (Negative); Blood Urine Negative (Negative); Glucose Urine UA Negative (Normal); Ketones Urine Negative (Negative); Leukocyte Esterase Urine Negative (Negative); Nitrate Urine Negative (Negative); Protein Urine Negative (Negative); Specific Gravity, Urine 1.016 (1.005-1.030); Urine Appearance Clear (CLEAR); Urine Color Yellow (Yellow); Urobilinogen Urine 0.2 mg/dL (Negative); pH Urine 7.5 (5-7)
[2024-04-20 10:13] LABS: Add Urine Culture? No; Charge for UA Resulting for Rev
[2024-04-20 10:28] LABS: Alanine Aminotransferase 7 U/L (0-41); Albumin Level 4.4 g/dL (3.5-5.2); Alkaline Phosphatase 72 U/L (40-130); Anion Gap 15.1 (5-19); Aspartate Amino Transferase 17 U/L (0-40); Blood Urea Nitrogen 11 mg/dL (8-23); Calcium 8.9 mg/dL (8.5-10.5); Carbon Dioxide 27 mmol/L (22-29); Chloride 100 mmol/L (98-107); Globulin 2.5 g/dL (1.3-4.6); Glucose 94 mg/dL (65-115); Osmolality Calculated 285 mOsm/kg (285-295); Potassium 4.1 mmol/L (3.5-5.1); Sodium 138 mmol/L (136-145); Total Bilirubin 0.7 mg/dL (0.15-1.2); Total Protein 6.9 g/dL (6.6-8.7)
== END 2024-04-20 09:38 | disposition home or self-care (01) ==
LOC: LAB 09:39
PROVIDERS: PCP Nurse Practitioner Family; Visit Provider Student in an Organized Health Care Education/Training Program
DX: Z01.818 Encounter for other preprocedural examination (principal)
CPT/HCPCS: 36415; 80053; 81003; 85025

== ENCOUNTER 2024-04-24 12:12 | Outpatient (CLI) | payer OTHER, SELFPAY ==
--- NOTE | 2024-04-24 12:00 | CT_ITS ---
WS: [id number] CT RIGHT KNEE, NONCONTRAST [facility] TECHNIQUE: Noncontrast CT of the RIGHT knee to include the RIGHT hip and ankle. CLINICAL INFORMATION: DJD KNEE COMPARISON: None. DLP: 962.[address] scans at [facility] use at least one of these dose optimization techniques: automated exposure control; mA and/or kV adjustment per patient size (includes targeted exams where dose is matched to clinical indication); or iterative reconstruction. FINDINGS: Advanced tricompartment arthritis RIGHT knee. Prior LEFT TKA. Hypertrophic changes along the joint line. Small suprapatellar effusion. Hypertrophic patella. Large lobulated popliteal cyst. Popliteal cyst measures approximately 4.0 x 6.3 cm AP by transverse. Sigmoid diverticulosis. Prostate measures 4.[address]/CT knee RT [facility] [id number] IMPRESSION: Images obtained for preoperative purposes.
== END 2024-04-24 12:13 | disposition home or self-care (01) ==
PROVIDERS: PCP Nurse Practitioner Family; Visit Provider Student in an Organized Health Care Education/Training Program
DX: M17.11 Unilateral primary osteoarthritis, right knee (principal); Z98.890 Other specified postprocedural states; R93.6 Abnormal findings on diagnostic imaging of limbs; M71.21 Synovial cyst of popliteal space [Baker], right knee; K57.30 Diverticulosis of large intestine without perforation or abscess without bleeding; I70.90 Unspecified atherosclerosis
CPT/HCPCS: 73700

== ENCOUNTER → 2024-04-28 09:45 | Outpatient (BNVA) | payer OTHER, SELFPAY | PROVIDERS: PCP Nurse Practitioner Family; Visit Provider Family Medicine | DX: Z01.818 Encounter for other preprocedural examination (principal) | CPT/HCPCS: 93005 ==

== ENCOUNTER → 2024-05-09 07:56 | Outpatient (BNVA) | payer OTHER, SELFPAY | PROVIDERS: PCP Nurse Practitioner Family; Visit Provider Physician Assistant | DX: M17.11 Unilateral primary osteoarthritis, right knee (principal); Z96.652 Presence of left artificial knee joint | CPT/HCPCS: 99213 ==

== ENCOUNTER 2024-05-15 09:51 | Observation (INO) | payer OTHER, SELFPAY ==
[2024-05-15] VITALS (18 sets, daily range): BP systolic 99–187; BP diastolic 50–99; PULSE 2–80; RESP 14–19; TEMP 36.2–36.6; O2SAT 95–100; BMI 29.6
[2024-05-15] MEDS: ketorolac 30 mg/mL INJ IVP (06:43)
[2024-05-15] MEDS: acetaminophen 1,000 MG/100 ML PIGGYBACK 400 MG IV ×3 (06:46→21:47)
[2024-05-15] MEDS: sodium chloride 0.9% 1,000 ML 30 ML IV (06:47)
[2024-05-15] MEDS: scopolamine 1 mg PATCH 1 PATCH TRANSDERMA (06:47)
[2024-05-15 06:51] LABS: Basophils # 0.1 10^3/uL (0.0-0.1); Basophils % 0.6 %; Eosinophils # 1.2 10^3/uL (0.0-0.8); Eosinophils % 15.4 %; Hematocrit 42.2 % (37-53); Lymphocytes # 2.7 10^3/uL (0.8-4.8); Lymphocytes % 34.2 %; Mean Corpuscular HGB Conc 32.9 g/dL (30-55); Mean Corpuscular Hemoglobin 30.9 pg (27-33); Mean Corpuscular Volume 93.8 fl (82-101); Monocytes % 12.4 %; Neutrophils # 2.92 10^3/uL (1.8-7.7); Neutrophils % 37.3 %; Nucleated Red Blood Cells % 0 %; Platelet Count 221 10^3/cmm (157-399); Red Cell Distribution Width 13.6 % (12.1-15.1); White Blood Count 7.84 10^3/uL (3.29-11.43)
--- NOTE | 2024-05-15 06:52 | ANES.PREANE2 ---
Pre-Anesthetic Assessment Height/Weight: Height 5 ft 8 in Weight 195 lb Temp Pulse Resp BP Pulse Ox O2 Del Method 97.9 F 60 18 140/99 98 Room Air 05/15/24 06:23 05/15/24 06:23 05/15/24 06:23 05/15/24 06:47 05/15/24 06:23 05/15/24 06:23 Preop Diagnosis: Knee arthritis Operation Date: 05/15/24 07:00 Proposed Procedures p Adam Robot Total Knee Arthroplasty(Right) - Sonido Aiken, DO Was Beta Amy taken within 24 hours: N/A Was Clonidine taken within 24 hours: N/A Last intake: Intake Last Liquid Date 05/14/24 Last Liquid Time 22:00 Last Solid Date 05/14/24 Last Solid Time 19:00 Social No alcohol and No tobacco Exam alert, oriented x 3, clear to auscultation bilaterally and regular rate & rhythm Airway Submandibular: within normal limits Cervical ROM: within normal limits Mallampati: Class II Comments: Comments: No upper teeth, missing teeth on the bottom. Denies any loose Anesthetic Plan ASA status: 2 Anesthesia: MAC and Regional (specify below) Other: No prior issues with anesthesia, patient had similar procedure last year under spinal anesthesia and did well NPO since yesterday evening Denies any cardiac or pulmonary issues. Preop BP 140/99 Labs reviewed and acceptable for procedure Plan for spinal anesthesia with adductor canal block Medications/Allergies Home Medications ?Medication ?Instructions ?Recorded ?Confirmed ?Last Taken ?Type No Known Home Medications 05/15/24 05/15/24 Unknown History Allergies Allergy/AdvReac Type Severity Reaction Status Date / Time No Known Allergies Allergy Verified 05/10/24 16:56 Current Medications Generic Name Dose Route Start Last Admin Trade Name Freq PRN Reason Stop Dose Admin Sodium Chloride 1,000 mls @ 30 mls/hr 05/15/24 06:15 05/15/24 06:47 Sodium Chloride 0.9% IV 05/16/24 06:14 30 mls/hr .Q24H GUANACO Administration PFSH Anesthesia Medical History Osteoarthritis of right knee Left knee DJD Social History Smoking and tobacco/nicotine status: never used tobacco/nicotine Alcohol intake: current Alcohol intake frequency: few times a week Marital status: Data Anesthesia 05/15/24 06:36 05/15/24 06:30 Short CBC 05/15/24 Range/Units 06:36 WBC 7.84 (3.29-11.43) 10^3/uL Hgb 13.90 (11.27-16.99) g/dL Hct 42.2 (37-53) % MCV 93.8 (82-101) fl Plt Count 221 (157-399) 10^3/cmm Neut % (Auto) 37.3 % Neut # (Auto) 2.92 (1.8-7.7) 10^3/uL Cardiac Studies: No Data to Display
--- NOTE | 2024-05-15 06:53 | W.PM.OPSUD ---
Surgery/Procedure H&P Update DATE OF PROCEDURE: May 15, 2024 DATE H&P PERFORMED: 05/09/24 H&P UPDATE INFORMATION: I have reviewed H&P completed within last 30 days, I have examined patient prior to procedure and No changes to prior documentation PREOP DIAGNOSIS: Right knee degenerative joint disease PRIMARY INDICATION FOR PROCEDURE: Right knee degenerative joint disease PLANNED PROCEDURE: Operation Date: 05/15/24 07:00 Proposed Procedures p Adam Robot Total Knee Arthroplasty(Right) - Sonido Aiken DO
--- NOTE | 2024-05-15 06:58 | PC.NURSE ---
0658 Removed scopalamine patch per anesthesia request
[2024-05-15] MEDS: ceFAZolin 2,000 MG in sodium chloride 0.9% (plus) 50 ML 100 MG IV ×3 (07:04→22:53)
[2024-05-15 07:12] LABS: Blood Urea Nitrogen 12 mg/dL (8-23); Calcium 9.4 mg/dL (8.5-10.5); Carbon Dioxide 28 mmol/L (22-29); Chloride 103 mmol/L (98-107); Creatinine Clr Calc Pharmacy 80.9313; Glucose 104 mg/dL (65-115); Osmolality Calculated 292 mOsm/kg (285-295); Sodium 141 mmol/L (136-145)
[2024-05-15 07:23] LABS: Anion Gap 14.3 (5-19); Potassium 4.3 mmol/L (3.5-5.1)
[2024-05-15] MEDS: tranexamic acid 1,000 mg/10mL SDV 1000 MG IV (07:40)
[2024-05-15] MEDS: ROPivacaine 0.2% Premix 100 mL 200 MG INTRA-ARTI (08:08)
[2024-05-15] MEDS: EPINEPHrine 1 mg/mL INJ XX (08:09)
[2024-05-15] MEDS: tranexamic acid 1,000 mg/10mL SDV 1000 MG XX (08:09)
[2024-05-15] MEDS: ketorolac 30 mg/mL INJ XX (08:10)
[2024-05-15] MEDS: VANCOMYCIN ADD-Vantage 1,000 MG VIAL 1000 MG XX (08:11)
--- NOTE | 2024-05-15 09:13 | PM.OP ---
Operative Report Date of procedure: May 15, 2024 Surgeon: Sonido Aiken DO Procedure: Surgeon: Sonido Aiken DO Branch Rental Manager: Jacques Aiken PA-C: PA was necessary for assistance in this case with leg positioning retraction and protection of neurovascular structures as well as assistance in implantation wound closure and dressing application. Procedure: Preoperative diagnosis: Right knee degenerative joint disease Post-op diagnosis: Same Procedure done: Right total knee arthroplasty, cemented?robotic assisted Adam Implants: Sullivan triathlon size 6 femur CR cemented?Right Sullivan triathlon size? 5 tibia universal baseplate cemented George triathlon symmetric patella size 33 mm Sullivan triathlon polyethylene 10mm Surgeon: Sonido Aiken DO Estimated blood?loss: 25 mL Tourniquet 62 minutes IV fluids: 1300 mL Urine output: 100 mL Complications: None Condition: stable Disposition: floor Brief History: Patient is a 78-year-old male with with chronic?Right knee degenerative joint disease.? Patient has been worked up in the outpatient setting in the orthopedic office at this point time through shared decision making given? [id number] arthritis as well as failed conservative treatment, and pt would?like to proceed with a?Right total knee arthroplasty.? Through shared decision making elected to proceed with surgical intervention for?Right total knee arthroplasty.? We talked about continued conservative treatment and surgical intervention as far as the risk benefits complications alternatives surgical and nonsurgical treatment options.? At this point time understanding patient risks with surgery he agrees to proceed with surgical intervention.? Once again? risk with surgery include but are not?limited to make it better make it worse blood clot, heart attack, stroke, on the table, infection, injury to nerves or vessels, persistent pain, arthrofibrosis, implant failure.? Understanding these risks patient agrees to proceed with surgical intervention consent was obtained in the office.? All questions answered. Procedure: Patient was seen and evaluated in the preoperative holding area.? Consent was reviewed and signed with patient with plan for?Right total knee arthroplasty.? All questions answered.? Correct extremity marked.? Patient seen and evaluated by the anesthesia department and once cleared for surgery was taken back to the operative suite.? Patient was placed into a supine position on the OR table.? All bony prominences were well-padded.? Patient was appropriately secured to the bed.? Patient underwent anesthesia per the anesthesia department.? Patient received spinal anesthesia and? Abreu catheter was placed.? A nonsterile tourniquet was applied to the?Right thigh.? At this point in time a final timeout performed.? Patient received appropriate preoperative antibiotics and TXA. Next the?Right?lower extremity was then prepped and draped in standard orthopedic fashion. Esmarch tourniquet was used exsanguinate the?Right?lower extremity.? Tourniquet was insufflated to 250 mmHg. A standard anterior incision was made over midline of the knee.? Sharp scalpel excision through skin and subcutaneous tissue full-thickness skin flaps were made.? Fascia was elevated off of the extensor retinaculum was stable with medial parapatellar arthrotomy was then made.? The performed standard sequential releases..? Immediately on entry into the joint patient was found to have severe eburnated bone and tricompartmental arthritic changes noted.? With significant osteophyte formation.? Next the the patella was then stuffed and the knee was then flexed.?? Liyah was placed superiorly around the anterior aspect of the femur this was freed of synovium and I subsequently then placed by 2 femur pins to establish my femur arrays for the Adam robot.? These were then placed bicortically and? femur array was then appropriately secured with appropriate visualization.? Next attention was turned towards the tibial rays.? These were then drilled sequentially bicortically in parallel fashion and intraincisional.? I then placed my guide as well as my tibial array on in place.? This was appropriately secured and had excellent visualization with the Adam robot.? Next the tibial checkpoint as well as femur checkpoint were then placed.? At this point time I then subsequently established my head center as well as my medial?lateral malleoli as well as my checkpoints.? Next utilizing standard Adam technology I then mapped out the appropriate points and confirmation points around the femur as well as the tibia in standard fashion.? Once this was then done I then removed all osteophytes in preparation for dynamic testing.? All osteophytes were removed as well as I removed the ACL and the PCL was excised due to its significant tearing and degeneration noted.? At this point time the knee was brought into full extension and we performed our standard evaluation of our gap balancing stressing his?ligaments and extension as well as flexion appropriate adjustments were made to have appropriate gap balancing in both flexion and extension.? This plan for final counts.? We get a preoperative plan evaluating our implants which was a size 6 femur and a size 5 tibia.? Next we brought in the Adam robot and sequentially made our femur cuts.? All excess bony cuts were then removed.? Finally we made our tibial cut.? Once this was done a standard PCL retractor was then placed into this position I excised the medial and?lateral meniscus.? The tibial cut was then subsequently removed all excess bony debris was removed.? I then utilized a?lamina dye boarding machine operator and remove the posterior osteophytes.? At this point time sized the tibia and confirmed this was a size 6.? I utilized our blunt probe to establish rotation of tibial implant.? Once this was done I then placed my tibia size 6 trial in appropriate position and then subsequently placed tibial pins to hold this into place placed and trialed up to a size 10 mm poly as well as a size 6 femur which was appropriately impacted in place knee was then subsequently brought into extension. Trials were then assessed,? this was stable with varus valgus stress in extension as well as had symmetrical translation when brought into flexion demonstrating symmetrical gaps. I had excellent balance gaps in flexion and extension with varus and valgus stresses.? At this point I was satisfied with these implants these were then verified and opened on the back table size 5 tibia, size 6 femur,? size 10 mm polythickness.? We did confirm appropriate gap balancing and stresses as well as alignment utilizing? Adam and were satisfied with this plan.? ?At this point time with my trials in place I then towel clip the patella everted this made appropriate measurements subsequently utilizing freehand technique performed by patellar resurfacing this was confirmed to be appropriate resection and subsequently sized to be a 33 mm symmetric.? My drill peg guides were then clamped and appropriate position and appropriate position in the patella for appropriate tracking and parallel with the joint.? Pegs were drilled trial implant was placed and the knee was then subsequently ranged and found to have excellent patellar tracking.? Femur pegs were then drilled.? All checkpoints as well as guidepins and arrays were removed and appropriate counts. made. Satisfied with our tibial placement rotation I then utilized the keel punch and prepped the tibia.? At this point time all of our trial implants were removed.?The wound bed? was thoroughly irrigated and dried and prepped for cementation.? Cement was mixed on the back table.? Once cement was ready this was then covered onto the tibia and the tibial baseplate was then impacted and all excess cement was removed.? Next the polyethylene was then impacted into place on the tibial baseplate.? Next cement was placed onto the femur as well as under the femur implants and impacted in to place and all excess cement was extruded and removed.? Knee was taken into full extension? to clear all excess cement was removed.? Warm saline was placed over the joint.? I then towel clip patella and dried for cementation. cemented the patella into place.? This was all clamped and the cement was allowed to cure.? Thorough irrigation performed with pulse?lavage.? I then placed my periarticular injection while the cement was curing.? Once cured the knee was taken through range of motion and had excellent stability and gaps were balanced in flexion and extension.? Tourniquet was then deflated. hemostasis satisfactory with electrocautery.? Vancomycin powder was placed in wound bed for antibiotic infection prophylaxis. Next I then subsequently closed the capsule with Ethibond suture as well as a running strata fix suture.? Knee was then taken through range of motion 20 times.? Next the skin was then closed in?layered fashion of running stratifix sutures of deep and subcutenous tissue and skin. Prineo was used for skin closure as no appreciable plaque psoriasis flareups around the knee. Incision was covered with puja incisional VAC dressing, with ABDs soft roll and Bay wrap.? Patient was then awakened from anesthesia and taken to PACU in stable condition. Disposition: Patient taken to PACU in stable condition will be admitted to the floor for pain control PT/OT weight-bear as tolerated?Right?lower extremity dressing changes as needed, DVT prophylaxis. Pain control. Patient will receive appropriate postoperative antibiotics. patient will be seen today by the internal medicine team for medical management.? Patient will follow up with the office in 2 weeks.? Patient understands agrees with current plan.? All questions answered.
--- NOTE | 2024-05-15 09:39 | W.PM.BPON ---
Date of Procedure: [May 15, 2024] Surgeon: [Dr. Aiken DO] Production Material Coordinator(s): [Jacques Aiken PA-C] Procedure(s) performed: [Right total knee arthroplasty with Adam robotic assist.] Findings of the procedure(s): [Right knee degenerative joint disease. Procedure went well and as planned.] Estimated blood loss: [25 ml] Specimen(s) removed: [N/A] Post-operative diagnosis: [Right knee degenerative joint disease]
--- NOTE | 2024-05-15 09:40 | PM.PACU ---
PACU note Narrative: Patient is a 78-year-old male that just underwent a right total knee arthroplasty. Pt transferred to PACU in stable condition. Dressing is dry. pt is awake and alert. pt can wiggle toes and plantarflex and dorsiflex foot. pt able to perform straight leg raise, Femoral nerve intact. Distal pulses are palpable toes are warm and well-perfused. Cap refill is normal and under 2 seconds. Unable to assess sensation due to residual block. Pain is controlled. Exam: awake Disposition: admitted
--- NOTE | 2024-05-15 09:59 | XRR_ITS ---
PROCEDURE INFORMATION: Exam: XR Right Knee Exam date and time: 05/15/2024 9:02 AM Age: 78 years old Clinical indication: Device placement; Joint replacement hardware; Prior surgery; Surgery date: Post-operative (0-2 days); Surgery type: Knee; Additional info: Post op TECHNIQUE: Imaging protocol: Radiologic exam of the right knee. Views: 1 or 2 views. COMPARISON: CT knee RT [facility] [id number] 04/24/2024 12:19 PM FINDINGS: Bones/joints: Normal. Total knee replacement. Anatomic alignment. Bone and metal are intact. Periarticular and intra-articular gas. Soft tissues: Normal. XR/XR knee RT 1-2V [id number] IMPRESSION: No acute findings.
--- NOTE | 2024-05-15 10:26 | ANE.PACU2 ---
Inpatient post-anesthesia follow up: Airway intact: Yes Vital signs: Temperature 97.2 F Pulse Rate 2 Respiratory Rate 17 Blood Pressure 135/60 Pulse Oximetry 97 Oxygen Delivery Me thod Room Air Oxygen Flow Rate 6 Fraction of Inspir ed Oxygen Hydration adequate: Yes Nausea and vomiting: No Pain level: 1 Mental status: Baseline
--- NOTE | 2024-05-15 10:32 | ANES.PROC ---
Anesthesia Procedures Procedure/Date: 05/15/24 Nerve Block ^: Nerve Block 1: Main Anesthesia: general anesthesia Time Out Performed: Yes Consent: requested by attending/covering physician and from patient Nerve block location: adductor canal Anesthesia monitors applied: pulse oximetry, EKG, BP cuff and oxygen Nerve block position: supine Anesthetic Used: ropivicaine 0.5% Amount of anesthesia used (mL): 15 Ultrasound used to: recognize landmarks Nerve Stimulator Used?: Yes Interscalene/Femoral BLK: other needle (pjunk 4inch) Injection: neg aspiration of heme Patient Tolerated Procedure: well Complications: none
--- NOTE | 2024-05-15 13:02 | ECG_ITS ---
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 Measurements Intervals [place] Rate: 50 P: 74 [place]: 226 QRS: -26 QRSD: 114 T: -10 QT: 476 QTc: 435 Interpretive Statements SINUS BRADYCARDIA WITH FIRST DEGREE AV BLOCK MODERATE VOLTAGE CRITERIA FOR LVH, CONSIDER NORMAL VARIANT [MEETS CRITERIA IN ONE OF: R(aVL), S(V1), R(V5), R(V5/V6)+S(V1)] POSSIBLE SEPTAL MYOCARDIAL INFARCTION , OF INDETERMINATE AGE [30 ms Q WAVE IN V1/V2] POSSIBLE LATERAL MYOCARDIAL INFARCTION , PROBABLY OLD [30 ms Q WAVE IN I/aVL/V5/V6] Compared to ECG 04/28/2024 09:50:26 Myocardial infarct finding now present Intraventricular conduction delay no longer present Electronically Signed On 05-15-2024 21:00:00 CDT by Marie Green M.D. [email or web address]
--- NOTE | 2024-05-15 13:02 | PC.NURSE ---
Dr Cruz to the floor to evaluate the patient. Verbal orders for a 12lead ekg and he will look at and put in orders for a GI cocktail.
[2024-05-15] MEDS: chlorhexidine gluconate 0.12% Btl 473 mL 30 ML MUCOUS MEM ×3 (14:05→20:17)
[2024-05-15] MEDS: lidocaine 2% viscous 15 ML, aluminum-mag hydrox-simethicon 30 ML, sucralfate oral liq 1 GM PO (14:07)
[2024-05-15] MEDS: tranexamic acid 1,000 MG/100 ML PREMIX 600 MG IV (15:21)
[2024-05-15] MEDS: iron polysaccharide complex 150 mg Capsule PO (17:58)
[2024-05-15] MEDS: calcium carb-vit d 600mg/400unit 1 Tablet 1 EACH PO (17:58)
[2024-05-15] MEDS: docusate sodium 100 mg Capsule PO (17:58)
[2024-05-15] MEDS: mupirocin oint 22 gm 1 APPLIC NASAL (17:58)
--- NOTE | 2024-05-15 19:28 | P.CONIM_ITS ---
Providers/Reason For Consult 2 Consulting Physician/Specialty*: Frase/Hospitalist Reason for Consult*: chest pain Requesting Physician: Dr Aiken Attending Physician: Sonido Aiken DO Primary Care Provider: Chioma Machado APRN History of Present Illness History of Present Illness Jesus Zaman is a 78 year old male who presented to [facility] on the day of admission for planned Right total knee arthroplasty by Dr. Aiken. He has had previous left total knee arthroplasty in the fall of last year and did well after that procedure. He had spinal anesthesia today and had 25 mL estimated blood loss. Postoperatively he complained of a sensation of wellness and soreness in his throat. At the time he was rubbing his upper chest. Given his age and this complaint hospitalist were consulted to assist with medical management. In talking with him further the onset of this discomfort in his throat was when he ate lunch or attempted to and began to swallow. He said his throat felt raw and may be his food got a little bit stuck. He has had similar sensations in the past that he took Tums for but today was much more severe. Mr. Zaman has no significant past medical history beyond the previous knee replacement mentioned. He takes no regular home medications. He is followed at the [facility]. Twelve-lead EKG showed sinus bradycardia at 50 bpm. This is similar to prior EKGs that also showed sinus bradycardia at [address] segment changes noted. Since getting to his room he has had no further episodes of similar symptoms. He was able to eat dinner without the same sensation. His pain is controlled. Review of Systems 2 General: Reports: Other (ROS as per HPI or as noted here) Card: Denies: chest pain Resp: Denies: dyspnea GI: Denies: nausea Musc: Reports: other (Appropriate postop pain) Medications/Allergies Home Medications ?Medication ?Instructions ?Recorded ?Confirmed ?Last Taken ?Type No Known Home Medications 05/15/2404/23 Unknown History Allergies Allergy/AdvReac Type Severity Reaction Status Date / Time No Known Allergies Allergy Verified 05/10/24 16:56 Current Medications Generic Name Dose Route Start Last Admin Trade Name Freq PRN Reason Stop Dose Admin Calcium Carbonate 1 each 05/15/24 18:00 05/15/24 17:58 Calcium Carb-Vit D 600mg/400unit 1 Tablet PO 1 each BID GUANACO Administration Chlorhexidine Gluconate 30 ml 05/15/24 13:00 05/15/24 17:58 Chlorhexidine Gluconate 0.12% Btl 473 Ml MUCOUS MEM 30 ml QID GUANACO Administration Docusate Sodium 100 mg 05/15/24 18:00 05/15/24 17:58 Docusate Sodium 100 Mg Capsule PO 100 mg BID GUANACO Administration Lactated Ringer's 1,000 mls @ 75 mls/hr 05/15/24 10:23 05/15/24 12:07 Lactated Ringers IV Not Given .[id number] GUANACO Acetaminophen 1,000 mg in 100 mls @ 400 mls/hr 05/15/24 14:00 05/15/24 14:39 Acetaminophen IV 05/16/24 06:14 Infused Q8H GUANACO Infusion Cefazolin Sodium 2,000 mg/ 50 mls @ 100 mls/hr 05/15/24 15:00 05/15/24 15:19 Sodium Chloride IV 05/16/24 07:29 100 mls/hr Q8H GUANACO Administration Protocol Mupirocin 1 applic 05/15/24 18:00 05/15/24 17:58 Mupirocin Oint 22 Gm NASAL 05/20/24 17:59 1 applic BID GUANACO Administration Protocol Polysaccharide Iron Complex 150 mg 05/15/24 18:00 05/15/24 17:58 Iron Polysaccharide Complex 150 Mg Capsule PO 150 mg BIDWM GUANACO Administration PFSH Acute 2 PFSH: Medical History (Updated 05/15/24 @ 20:27 by Jaye Carrera MD) Sinus bradycardia chronic, not related to medications Osteoarthritis of right knee Left knee DJD Surgical History (Updated 05/15/24 @ 19:33 by Jaye Carrera MD) 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) Dr Nelli Trejo Status post total right knee replacement using cement (05/15/24) Dr Nelli Sol Family History (Updated 05/15/24 @ 20:14 by Jaye Carrera MD) Sister Dementia onset late 90s Social History (Updated 05/15/24 @ 20:14 by Jaye Carrera MD) Smoking and tobacco/nicotine status: former use of tobacco/nicotine Alcohol intake: current Alcohol intake frequency: holidays/special occasions only Substance/Drug Use: never Household members: spouse Marital status: Vitals/I&O/Wt Last Vital Signs Temp 97.4 F L 05/15/24 16:01 Pulse 48 L 05/15/24 16:01 Resp 16 05/15/24 16:01 BP 165/69 05/15/24 16:01 Pulse Ox 97 05/15/24 16:01 O2 Del Method Room Air 05/15/24 16:01 O2 Flow Rate 6 05/15/24 09:39 05/15/24 05/15/24 05/15/24 06:59 14:59 22:59 Intake Total 1750 / 1750 Output Total 175 / 175 Balance 1575 / 1575 Weight last 48 hrs Weight 88.451 kg Physical Exam 2 Narrative: Patient is awake and alert, seen sitting up in bed side chair. Able to provide history. Normocephalic. Extraocular movements are intact. Neck is supple. Lungs are clear to auscultation bilaterally. Cardiovascular exam reveals a bradycardic but regular rhythm. Pulses are equal x 4. Abdomen is soft. Seaman catheter noted. Right lower extremity with dressings intact. Sensation intact to the toes and he is able to wiggle them on the right foot. No abnormalities noted to strengthen the left lower extremity. Surgical dressing intact, clean. Speech is clear, face is symmetric, cooperative and follows commands. Urinary Catheter Management: Seaman: Cath Placed During This Visit: yes Urinary Catheter Date of Insertion: 05/15/24 Urinary Catheter Time of Insertion: 07:32 Data 05/15/24 06:36 05/15/24 06:30 Other Labs: Radiology Impressions Knee X-Ray 05/15/24 09:59 IMPRESSION: No acute findings. Laboratory Results WBC 7.84 10^3/uL (3.29-11.43) 05/15/24 06:36 RBC 4.50 10^6/uL (3.85-5.65) 05/15/24 06:36 Hgb 13.90 g/dL (11.27-16.99) 05/15/24 06:36 Hct 42.2 % (37-53) 05/15/24 06:36 MCV 93.8 fl (82-101) 05/15/24 06:36 MCH 30.9 pg (27-33) 05/15/24 06:36 MCHC 32.9 g/dL (30-55) 05/15/24 06:36 RDW 13.6 % (12.1-15.1) 05/15/24 06:36 Plt Count 221 10^3/cmm (157-399) 05/15/24 06:36 MPV 10.0 fL (7.4-10.4) 05/15/24 06:36 Neut % (Auto) 37.3 % 05/15/24 06:36 Lymph % (Auto) 34.2 % 05/15/24 06:36 [place] % (Auto) 12.4 % 05/15/24 06:36 Eos % (Auto) 15.4 % 05/15/24 06:36 Baso % (Auto) 0.6 % 05/15/24 06:36 Neut # (Auto) 2.92 10^3/uL (1.8-7.7) 05/15/24 06:36 Lymph # (Auto) 2.7 10^3/uL (0.8-4.8) 05/15/24 06:36 [place] # (Auto) 1.0 10^3/uL (0.2-0.9) H 05/15/24 06:36 Eos # (Auto) 1.2 10^3/uL (0.0-0.8) H 05/15/24 06:36 Baso # (Auto) 0.1 10^3/uL (0.0-0.1) 05/15/24 06:36 Nucleated RBC % (auto) 0 % 05/15/24 06:36 Nucleated RBCs # 0.0 /100WBC 05/15/24 06:36 Sodium 141 mmol/L (136-145) 05/15/24 06:30 Potassium 4.3 mmol/L (3.5-5.1) 05/15/24 06:30 Chloride 103 mmol/L (98-107) 05/15/24 06:30 Carbon Dioxide 28 mmol/L (22-29) 05/15/24 06:30 Anion Gap 14.3 (5-19) 05/15/24 06:30 BUN 12 mg/dL (8-23) 05/15/24 06:30 Creatinine 0.7 mg/dL (0.7-1.2) 05/15/24 06:30 GFR Calculation Not Reportable 05/15/24 06:30 Glucose 104 mg/dL (65-115) 05/15/24 06:30 Calculated Osmolality 292 mOsm/kg (285-295) 05/15/24 06:30 Calcium 9.4 mg/dL (8.5-10.5) 05/15/24 06:30 Blood Type A Negative 05/15/24 06:30 Rho(D) Type Rh negative 05/15/24 06:30 Antibody Screen Negative 05/15/24 06:30 A&P Assessment and plan (1) Status post total right knee replacement using cement: POD 0 from surgery as per Dr Aiken. Did well. - Spinal anesthesia - Pain control - On cefazolin post-op regimen, s/p vancomycin x one dose - Has seaman with orders to remove - Has SCDs and orders for eliquis to start in am - Stool softeners, laxatives as needed - PT/OT to see - Plan is for home with home health tomorrow if remains stable (2) Chest pain: By description sounds more like difficulty swallowing and potentially a spasm. Improved after lidocaine/Maalox/simethicone/Carafate was administered though he did not like it. Does have sinus bradycardia noted on EKG but no acute ST segment changes. Not known to have risk factors for angina such as hyperlipidemia, known coronary artery disease, diabetes or chronic kidney disease. No clear family history of CAD. Does appear to have hypertension when in hospital or [facility] clinics but has not previously been on medication management. - Monitor for now - Tums prn Qualifiers: Chest pain type: other chest pain Qualified Code(s): R07.89 - Other chest pain (3) Sinus bradycardia: Looks to have chronic sinus bradycardia on review of current and prior records. Not on any chronic medications that would account for such. No evidence of symptoms related to bradycardia based on available history. - Monitor for symptoms related to bradycardia - Avoid medications which might impact heart rate (4) Hypertension: Reviewing available records here, patient looks to probably have primary hypertension that has not been treated with medications. He has chronic sinus bradycardia and has not taken medications much at all in the past. When he had his left knee done, he was prescribed medication for blood pressure control but did not take it. - Will start a low dose of lisinopril given his age and monitor - Will need follow up with PCP to address hypertension management plan keeping in mind his age and goals of care Qualifiers: Hypertension type: primary hypertension Qualified Code(s): I10 - Essential (primary) hypertension Plan VTE prophylaxis: Eliquis Antibiotics: perioperative antibiotics Pending studies: am labs Telemetry: not currently indicated Seaman: has orders to remove Line(s): peripheral IVs Disposition plan: Home with home health anticipated if remains stable. Will need follow up with PCP to evaluate blood pressure outside of hospital setting and determine management plan. Code Status: Full Code Thank you for consultation Plans discussed with patient and he was given an opportunity to ask questions PDMP PDMP Reviewed: Last Reviewed 05/15/24 19:33 by Jaye Carrera MD Consult Attestations 2 Medical Necessity Statement: as per attending Coding Level of Care Code 51752 Low Time for a total of Total time in patient care (in minutes): 45 minutes, includes reviewing past or interval history, examining/interviewing patient, placing orders and documenting encounter Diagnoses Status post total right knee replacement using cement Z96.651 Other chest pain R07.89 Chest pain type: other chest pain Sinus bradycardia R00.1 Primary hypertension I10 Hypertension type: primary hypertension
[2024-05-15] MEDS: ketorolac 30 mg/mL INJ 15 MG IVP (20:18)
[2024-05-15] MEDS: lactated ringers 1,000 ML 75 ML IV (22:53)
[2024-05-15] MEDS: HYDROmorphone 0.5 MG/0.5 ML INJ IVP (23:05)
[2024-05-16 03:46] VITALS: BP 148/76; PULSE 73; RESP 16; TEMP 36.4; O2SAT 96
[2024-05-16 04:05] LABS: Basophils % 0.3 %; Eosinophils # 0.7 10^3/uL (0.0-0.8); Eosinophils % 6.6 %; Lymphocytes # 1.8 10^3/uL (0.8-4.8); Lymphocytes % 17.8 %; Mean Corpuscular HGB Conc 33.1 g/dL (30-55); Mean Corpuscular Hemoglobin 30.8 pg (27-33); Mean Corpuscular Volume 93.3 fl (82-101); Mean Platelet Volume 9.8 fL (7.4-10.4); Monocytes # 1.4 10^3/uL (0.2-0.9); Monocytes % 14.6 %; Neutrophils # 5.93 10^3/uL (1.8-7.7); Neutrophils % 60.4 %; Nucleated Red Blood Cells % 0 %; Platelet Count 172 10^3/cmm (157-399); Red Blood Count 3.86 10^6/uL (3.85-5.65); Red Cell Distribution Width 13.6 % (12.1-15.1); White Blood Count 9.82 10^3/uL (3.29-11.43)
[2024-05-16 04:26] LABS: Anion Gap 11.9 (5-19); Blood Urea Nitrogen 9 mg/dL (8-23); Calcium 8.4 mg/dL (8.5-10.5); Carbon Dioxide 23 mmol/L (22-29); Chloride 103 mmol/L (98-107); Creatinine Clr Calc Pharmacy 80.9313; Glucose 104 mg/dL (65-115); Osmolality Calculated 277 mOsm/kg (285-295); Potassium 3.9 mmol/L (3.5-5.1); Sodium 134 mmol/L (136-145)
[2024-05-16] MEDS: acetaminophen 1,000 MG/100 ML PIGGYBACK 400 MG IV (05:56)
[2024-05-16] MEDS: iron polysaccharide complex 150 mg Capsule PO (07:15)
[2024-05-16] MEDS: ceFAZolin 2,000 MG in sodium chloride 0.9% (plus) 50 ML 100 MG IV (07:15)
--- NOTE | 2024-05-16 08:42 | PM.DCS ---
Discharge Providers Date of Admission: 05/15/24 09:51 Date of Discharge: May 16, 2024 Attending Provider at Admission: Sonido Aiken DO Attending Provider at Discharge: Sonido Aiken DO Consults: Dr. Carrera?hospitalist Primary Care Provider: Chioma Machado APRN Diagnoses at Discharge Discharge Diagnosis (1) Status post total right knee replacement using cement: Status: Acute Permanent problem details: Adam-Dr Nelli segura (2) Chest pain: Status: Acute Qualifiers: Chest pain type: other chest pain Qualified Code(s): R07.89 - Other chest pain (3) Sinus bradycardia: Status: Chronic Permanent problem details: chronic, not related to medications (4) Hypertension: Status: Acute Qualifiers: Hypertension type: primary hypertension Qualified Code(s): I10 - Essential (primary) hypertension Reason for Visit Reason for Visit: [id number] Brief History: Status post right total knee arthroplasty Hospital Course Hospital Course Patient presented to the preoperative holding area with plan for right total knee arthroplasty after patient has been worked up in the outpatient setting for failed conservative treatment of right knee degenerative joint disease. Once cleared by anesthesia for surgery patient subsequently was taken back to the operative suite underwent anesthesia per anesthesia department and then subsequently underwent a right total knee arthroplasty. Procedure was performed without any complications patient was taken to PACU in stable condition patient recovered well in PACU and then was admitted to the floor postoperatively internal medicine was consulted and on board for medical management and assistance with care. Patient received appropriate PT/OT, postoperative antibiotics, postoperative TXA, pain control, postoperative DVT prophylaxis. Elevation and ice. Patient encouraged for knee range of motion allowed weightbearing as tolerated to the operative lower extremity. Dressing was changed as needed, labs were monitored daily. Patient recovered well postoperatively and worked well and progressed well with therapy. Patient did have an episode chest pain was worked up by the anesthesia this is during the early postoperative period on the floor and was worked up by anesthesia evaluated by hospitalist. Patient was given a GI cocktail as this was thought to being more reflux related and he had good response to this. It was determined on postoperative day 1 the patient was stable for discharge from an orthopedic standpoint and medicine. Patient was comfortable with discharge and plan was discharged home. Patient received appropriate discharge instructions as well as pain medication and DVT prophylaxis postoperatively. Given appropriate instructions for dressing management. Patient will follow-up with Dr. Evangeline/orthopedics in the office in 2 weeks. All questions answered. Understand if there is any issues questions or concerns and contact the office. Physical Exam Narrative: Right knee examination: Dressing on in place, clean dry and intact. No evidence of saturation. Patient has normal postoperative swelling and tenderness to palpation to the knee. Compartments are soft compressible,'s calf soft and nontender. Sensations intact to light touch distally. Distal pulses are palpable. Patient is able to wiggle toes as well as plantarflex and dorsiflex ankle. Urinary Catheter Management: Abreu: Cath Placed During This Visit: yes, but has since been removed by the nurse Reason for Continuing Indwelling Catheter: Decision to DC Catheter Urinary Catheter Date of Insertion: 05/15/24 Urinary Catheter Time of Insertion: 07:32 Date Urinary Catheter Removed: 05/15/24 Time Urinary Catheter Discontinued: 18:30 Discharge Data Studies Completed and Pending Completed Studies During Hospitalization Category Date Time Status XR knee RT 1-2V 21097 Routine Exams 05/15/24 09:59 Completed Pending at discharge Category Date Time Status Basic Metabolic Panel AM LABS Lab 05/17/24 04:00 Ordered Basic Metabolic Panel AM LABS Lab 05/18/24 04:00 Ordered Complete Blood Count w/Auto AM LABS Lab 05/17/24 04:00 Ordered Complete Blood Count w/Auto AM LABS Lab 05/18/24 04:00 Ordered Radiology Impressions Knee X-Ray 05/15/24 09:59 IMPRESSION: No acute findings. Laboratory Results WBC 9.82 10^3/uL (3.29-11.43) 05/16/24 03:55 RBC 3.86 10^6/uL (3.85-5.65) 05/16/24 03:55 Hgb 11.90 g/dL (11.27-16.99) 05/16/24 03:55 Hct 36.0 % (37-53) L 05/16/24 03:55 MCV 93.3 fl (82-101) 05/16/24 03:55 MCH 30.8 pg (27-33) 05/16/24 03:55 MCHC 33.1 g/dL (30-55) 05/16/24 03:55 RDW 13.6 % (12.1-15.1) 05/16/24 03:55 Plt Count 172 10^3/cmm (157-399) 05/16/24 03:55 MPV 9.8 fL (7.4-10.4) 05/16/24 03:55 Neut % (Auto) 60.4 % 05/16/24 03:55 Lymph % (Auto) 17.8 % 05/16/24 03:55 [place] % (Auto) 14.6 % 05/16/24 03:55 Eos % (Auto) 6.6 % 05/16/24 03:55 Baso % (Auto) 0.3 % 05/16/24 03:55 Neut # (Auto) 5.93 10^3/uL (1.8-7.7) 05/16/24 03:55 Lymph # (Auto) 1.8 10^3/uL (0.8-4.8) 05/16/24 03:55 [place] # (Auto) 1.4 10^3/uL (0.2-0.9) H 05/16/24 03:55 Eos # (Auto) 0.7 10^3/uL (0.0-0.8) 05/16/24 03:55 Baso # (Auto) 0.0 10^3/uL (0.0-0.1) 05/16/24 03:55 Nucleated RBC % (auto) 0 % 05/16/24 03:55 Nucleated RBCs # 0.0 /100WBC 05/16/24 03:55 Sodium 134 mmol/L (136-145) L 05/16/24 03:55 Potassium 3.9 mmol/L (3.5-5.1) 05/16/24 03:55 Chloride 103 mmol/L (98-107) 05/16/24 03:55 Carbon Dioxide 23 mmol/L (22-29) 05/16/24 03:55 Anion Gap 11.9 (5-19) 05/16/24 03:55 BUN 9 mg/dL (8-23) 05/16/24 03:55 Creatinine 0.6 mg/dL (0.7-1.2) L 05/16/24 03:55 GFR Calculation Not Reportable 05/16/24 03:55 Glucose 104 mg/dL (65-115) 05/16/24 03:55 Calculated Osmolality 277 mOsm/kg (285-295) L 05/16/24 03:55 Calcium 8.4 mg/dL (8.5-10.5) L 05/16/24 03:55 Blood Type A Negative 05/15/24 06:30 Rho(D) Type Rh negative 05/15/24 06:30 Antibody Screen Negative 05/15/24 06:30 Vitals Last Vital Signs Temp 97.5 F L 05/16/24 03:46 Pulse 73 05/16/24 03:46 Resp 16 05/16/24 03:46 BP 148/76 05/16/24 03:46 Pulse Ox 96 05/16/24 03:46 O2 Del Method Room Air 05/16/24 03:46 O2 Flow Rate 6 05/15/24 09:39 Discharge Plan Discharge Patient Disposition: Home Health Service Condition: Stable Prescriptions: New oxycodone 5 mg tablet 5 mg PO Q6H PRN (Reason: pain postop) 7 Days Qty: 28 0RF Eliquis 2.5 mg tablet 2.5 mg PO BID 14 Days Qty: 28 0RF ondansetron 4 mg tablet,disintegrating 4 mg PO Q8H PRN (Reason: nausea and vomiting) 3 Days Qty: 9 0RF methocarbamol 500 mg tablet 500 mg PO TID PRN (Reason: muscle spasms/pain) 7 Days Qty: 21 0RF ondansetron 4 mg tablet,disintegrating 4 mg PO Q8H 3 Days Qty: 9 0RF Discharge Orders: Discharge Order (Routine); Ordered 05/16/24 Ordered By: Sonido Aiken Referrals: [facility] [Outside] Sonido Aiken DO [Physician] - Discharge Diet: Regular Discharge Activity: Limit activity as instructed and Use walker/crutches as instructed Patient Instructions: Acute Wound Care (DC), Hypertension (GEN), Opioid Safety, Post Anesthesia Care Activity Restrictions/Additional Instructions: Orthopedic discharge instructions: Brian Dressing--Keep dressing on and dry. After 3 days you can remove Bay bandage and soft dressing and shower. disconnect battery pack when showering. Brian dressing will stay on until follow up appt in 2 weeks. The battery pack for the dressing will at 5-7 days. Battery pack can be removed and discarded once batteries . Patient may weight-bear as tolerate to the operative extremity Utilize walker as needed Encourage knee range of motion Ice and elevate as needed for pain and swelling Take pain medication as prescribed Take antinausea medication as needed Take muscle relaxer as needed for muscle spasms recommend taking at night before bed Pain medication can cause constipation. take [id number] stool softeners and or MiraLAX. Take prescribed Eliquis twice daily for the next 14 days for blood clot prevention May supplement for pain with Tylenol [id number] as needed(1000 mg every 8 hours-do not exceed more than 3000mg in 24-hour period) No baths or soaks Follow-up in the orthopedic office in 2 weeks Contact the office for any questions or concerns Your blood pressure was noted to be elevated while you were here and on review of records from prior surgery, your blood pressure was also elevated then. Please make sure to follow up with your primary care provider to check your blood pressure again. If you can check your blood pressure at home and bring a lo of blood pressure readings to your primary care provider, it will help determine next steps, if any, to managing your high blood pressure. Discharge Attestations Time Spent in Discharge Care*: less than 30 min Quality Metrics Clinical Quality Measures [ No reported AMI, CVA or VTE this stay] Coding Level of Care Code Acute Code for Chg Fwd Diagnoses Status post total right knee replacement using cement Z96.651 Other chest pain R07.89 Chest pain type: other chest pain Sinus bradycardia R00.1 Primary hypertension I10 Hypertension type: primary hypertension Time Spent (min) 25
[2024-05-16] MEDS: calcium carb-vit d 600mg/400unit 1 Tablet 1 EACH PO (09:00)
[2024-05-16] MEDS: docusate sodium 100 mg Capsule PO (09:00)
[2024-05-16] MEDS: multivitamin therapeutic Tablet 1 TAB PO (09:00)
[2024-05-16] MEDS: lisinopril 2.5 mg Tablet PO (09:00)
[2024-05-16] MEDS: apixaban 5 mg Tablet 2.5 MG PO (09:00)
[2024-05-16] MEDS: mupirocin oint 22 gm 1 APPLIC NASAL (09:00)
[2024-05-16] MEDS: chlorhexidine gluconate 0.12% Btl 473 mL 30 ML MUCOUS MEM (09:04)
[2024-05-16 10:22] VITALS: BP 159/70; PULSE 81; RESP 17; TEMP 36.3; O2SAT 96
--- NOTE | 2024-05-16 10:30 | PC.OT ---
Attempted to see patient for am OT evaluation; however, patient already discharged
== END 2024-05-16 10:23 | disposition home health service (06) ==
LOC: OBGYN 09:51
PROVIDERS: Physician Assistant; Admitting Provider Student in an Organized Health Care Education/Training Program; PCP Nurse Practitioner Family; Visit Provider Student in an Organized Health Care Education/Training Program
PROC: 8E0Y0CZ Robotic Assisted Procedure of Lower Extremity, Open Approach (ICD-10-PCS; CPT 27447; principal; 2024-05-15 07:00)
DX: M17.11 Unilateral primary osteoarthritis, right knee (principal); R00.1 Bradycardia, unspecified; R07.89 Other chest pain; I10 Essential (primary) hypertension; Z96.652 Presence of left artificial knee joint; Z87.891 Personal history of nicotine dependence
CPT/HCPCS: 27447; 20985; 36415; 51702; 73560; 80048; 85025; 86850; 86900; 93005; 97116; 97161; 97530; A4216; C1713; C1776; G0378; J0131; J0171; J0690; J1171; J1885; J2250; J2371; J2704; J2795; J3370; J3490; J7030; J7120; J9999; L8699

== ENCOUNTER → 2024-05-30 14:22 | Outpatient (BNVA) | payer OTHER, SELFPAY | PROVIDERS: PCP Nurse Practitioner Family; Visit Provider Physician Assistant | DX: Z98.890 Other specified postprocedural states (principal); Z96.651 Presence of right artificial knee joint | CPT/HCPCS: 73560; 73565; 99024 ==

== ENCOUNTER → 2024-07-11 13:21 | Outpatient (BNVA) | payer OTHER, SELFPAY | PROVIDERS: PCP Nurse Practitioner Family; Visit Provider Physician Assistant | DX: Z96.651 Presence of right artificial knee joint (principal) | CPT/HCPCS: 73560; 73565; 99024 ==

== ENCOUNTER → 2024-10-11 12:55 | Outpatient (BNVA) | payer OTHER, SELFPAY | PROVIDERS: PCP Nurse Practitioner Family; Visit Provider Student in an Organized Health Care Education/Training Program | DX: Z96.651 Presence of right artificial knee joint (principal) | CPT/HCPCS: 73560; 73565; 99213 ==